=== PATIENT | male | born 1950 | race Caucasian/White ===

== ENCOUNTER 2019-01-31 16:31 | Inpatient (IN) ==
[2019-01-31] MEDS ORDERED: 0.9 % SODIUM CHLORIDE 1,000 ML IV ONE (17:15)
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
[2019-01-31] MEDS ORDERED: IPRATROPIUM/ALBUTEROL 3 ML AMPUL.NEB NEB ONE (17:23)
--- NOTE | 2019-01-31 18:10 | XRay Report ---
INDICATION: Dyspnea. Probable lung cancer. TECHNIQUE: AP chest x-ray,portable semiupright COMPARISON: Previous chest x-ray dated 01/25/2019. Previous chest CT scan dated 01/25/2019 FINDINGS:There is severe COPD with severe emphysema and diffuse interstitial abnormality. Chest CT scan demonstrated a large right hilar mass. This is not well-visualized on present plain film examination. No acute pulmonary parenchymal infiltrate. No pneumothorax. No significant pleural effusion. IMPRESSION: 1. Severe emphysema 2. No significant interval change since 01/25/2019 Interpreted and Authenticated by: Grant Crooks 01/31/19
[2019-01-31 18:28] LABS: ALT/SGPT 28 U/l (0-40); Albumin 2.9 gm/dL (3.2-5.2); Albumin/Globulin Ratio 0.8 (1.0-2.3); Alkaline Phosphatase 395 U/L (39-117); Blood Urea Nitrogen 16 mg/dl (8-23)
[2019-01-31 19:31] LABS: Mean Cell Volume 89.4 fL (80.0-100.0); Mean Corpuscular HGB Conc 32.5 g/dL (31.0-36.0); Platelet Count 594 K/mcL (140-440); RBC 3.97 M/mcL (4.50-5.90); Red Cell Distribution Width 13.4 % (11.5-14.5)
[2019-01-31 20:06] LABS: Band Neutrophils % 1 % (0-10); Basophils % (Manual) 1 % (0-2); Eosinophils % (Manual) 2 % (0-7); Lymphocytes % 16 % (15-49); Monocytes % (Manual) 6 % (1-12); Platelet Estimate INCREASED (NORMAL); RBC Morphology NORMAL (NORMAL); Segmented Neutrophils % 74 % (38-78)
[2019-01-31] MEDS ORDERED: ONDANSETRON 4 MG/2 ML VIAL IV PRN (20:50)
[2019-01-31] MEDS ORDERED: ALBUTEROL SULFATE 2.5 MG/3 ML NEBULIZER NEB PRN (20:50)
[2019-01-31] MEDS ORDERED: NALOXONE HCL 0.4 MG/ML VIAL IV PRN (20:50)
[2019-01-31] MEDS: LACTATED RINGERS 1,000 ML IV SCH (21:18)
[2019-01-31] MEDS: methylPREDNISolone SOD SUCC 125 MG/2 ML VIAL IV SCH ×2 (21:22→23:06)
[2019-01-31] MEDS: GABAPENTIN 300 MG CAPSULE PO SCH (21:22)
[2019-01-31] MEDS: 0.9 % SODIUM CHLORIDE 10 ML SYRINGE IV SCH (21:23)
[2019-01-31] MEDS: PIPERACILLIN SODIUM/TAZOBACTAM 3.375 GM in DEXTROSE 5% IN WATER 50 ML IV SCH (21:24)
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
[2019-01-31] MEDS: IPRATROPIUM/ALBUTEROL 3 ML AMPUL.NEB NEB SCH (22:48)
[2019-02-01] MEDS: PIPERACILLIN SODIUM/TAZOBACTAM 3.375 GM in DEXTROSE 5% IN WATER 50 ML IV SCH ×5 (01:39→23:05)
[2019-02-01] MEDS: IPRATROPIUM/ALBUTEROL 3 ML AMPUL.NEB NEB SCH ×6 (03:38→23:07)
[2019-02-01] MEDS: methylPREDNISolone SOD SUCC 125 MG/2 ML VIAL IV SCH ×3 (05:23→23:01)
[2019-02-01] MEDS: 0.9 % SODIUM CHLORIDE 10 ML SYRINGE IV SCH ×3 (05:23→23:28)
--- NOTE | 2019-02-01 05:56 | XRay Report ---
CLINICAL INFORMATION: Hip pain. Large lung mass, probably cancer TECHNIQUE: AP pelvis. Bilateral lateral hips COMPARISON: None. FINDINGS: Pelvis is negative. No lytic lesion. No fracture. No focal abnormality. Hips are negative. No hip fracture. Joint spaces are normal. No evidence for avascular necrosis. No acute abnormality. There is an elliptical shaped lucency in the right femoral diaphysis. This is nonspecific. This patient with a history of a large lung mass a small metastasis cannot be excluded. IMPRESSION: 1. No acute abnormality. 2. Small lucency in the right femoral diaphysis is nonspecific Interpreted and Authenticated by: Grant Crooks 02/01/19
[2019-02-01] MEDS: OMEPRAZOLE 20 MG CAPSULE PO SCH (07:15)
[2019-02-01] MEDS: ENOXAPARIN 40 MG/0.4 ML SYRINGE SQ SCH (09:34)
[2019-02-01] MEDS: GABAPENTIN 300 MG CAPSULE PO SCH ×3 (09:34→20:28)
--- NOTE | 2019-02-01 10:31 | Internal Med Progress Note ---
Medical - PN: Subj Patient information: Note initiated : 02/01/19 at 10:27 am Service Date, if different from initiated Date: [] Patient: Dawson Abdi 68 y/o M admitted on 01/31/19 for Shortness of breath. Chief Complaint: [] Interval history: Mr. Abdi is a 68 year old M with history of severe emphysema, presents to the emergency room today from the pulmonary clinic for evaluation of shortness of breath. The patient has had 3 visits to the emergency room over the last 1 month. He was diagnosed with a lung mass, and was advised to have a CT-guided biopsy. It seems that CT-guided biopsy was not feasible and therefore the patient was referred to pulmonary for bronchoscopy guided biopsy. The patient was evaluated in the pulmonary clinic today, the patient was very short of breath tachycardic and a low-grade temperature and therefore sent to the emergency room. According to the pulmonary note the patient was also confused and hallucinating. He was recently started on fentanyl. Patient's PFT was done recently which shows patient has severe obstructive lung disease. The patient notes that he has been short of breath for the last month or so, he has chest pain left side when he coughs, he has progressive decline in his effort tolerance, even walking a few feet makes him very short of breath. He has recently been started on oxygen I believe he takes 2 L at base. He has cough but did not quantify his sputum production. On presentation to the emergency room patient was hemodynamically stable and afebrile, he was placed on 3 L of oxygen to keep his oxygen saturation more than 90%. Labs show a leukocytosis WBC 18.6, hemoglobin 11.5 platelets 12/04/1993. Chemistry was unremarkable glucose 168, albumin is 2.8 and alkaline phosphatase is 395, patient has elevated pro-calcitonin 1.02. ABG 7.47/41/89 Patient is being admitted to the hospital for further management as the patient cannot undergo a bronchoscopy as an outpatient. Patient also has pneumonia likely postobstructive 02/01 pt seen examined, no acute change since yesterday, still sob with minimal activity on antibiotics, plan of care reviewed with pulmonary, will appreciate their help in getting a biopsy once patient is optimized. Pertinent ROS: Denies headache, dizziness Denies chest pain, palpitations shortness of breath and cough present. Denies abdominal pain, nausea or vomiting. - Constitutional Vitals: Vital Signs Temp Pulse Resp BP Pulse Ox 97.8 F 70 18 109/64 97 02/01/19 06:29 02/01/19 07:40 02/01/19 07:40 02/01/19 06:29 02/01/19 07:40 Period Temp Pulse Resp BP Sys/Dudley Pulse Ox Last 24 Hr 97.3 F-98.9 F 40-114 14-28 83-126/48-85 79-100 Intake and Output 01/31/19 02/01/19 02/01/19 21:59 05:59 13:59 Intake Total 1050 100 Output Total 1650 Balance 1050 -1550 Weight 112 lb Intake & Output: Intake & Output 01/31/19 02/01/19 02/01/19 21:59 05:59 13:59 Intake Total 1050 100 Output Total 1650 Balance 1050 -1550 Weight 112 lb Intake: IV 1050 50 Sodium Chloride 0.9% 1,000 ml @ 1000 Wide Open IV BOLUS ONE Rx#: [id number] Zosyn 3.375 gm In Dextrose 5% 50 50 in Water 50 ml @ 100 mls/hr IV Q6H NAOMI Rx#:[id number] Oral 50 Output: Void Amount 1650 Other: Urine Appearance Clear Urine Color Dark Yellow Dark Yellow Urine Odor Normal Exam: Constitutional; Afebrile, cooperative, alert, not in distress. Respiratory system: Air Entry equal on both sides, significntly decreased air entry bilaterally. No audible wheeze. CVS- Rate rhythm regular, S1,S2 heard, no gallop, no rub. Abdomen- Soft nontender abdomen, no organomegaly, no tenderness, no guarding or rigidity, [employer]- AOOx3, moving all extremities, no gross focal deficit noted. Medical - PN: Obj Da - Labs CBC & Chem 7: 01/31/19 18:52 01/31/19 17:13 Labs: Abnormal Lab Results 01/31/19 01/31/19 18:52 17:13 WBC 18.6 H RBC 3.97 L Hgb 11.5 L Hct 35.5 L Plt Count 594 H MPV 7.2 L Platelet Estimate Increased A Chloride 93 L Glucose 168 H Alkaline Phosphatase 395 H Albumin 2.9 L Globulin 3.8 H Albumin/Globulin Ratio 0.8 L Meds: Medications Acetaminophen (Tylenol) 650 mg PO Q6HP PRN PRN Reason: PAIN/FEVER > 101 Albuterol Sulfate (Ventolin) 2.5 mg NEB Q2HP PRN PRN Reason: Shortness Of Breath Albuterol/Ipratropium (Duoneb) 3 ml NEB Q4HRT [facility] Last Admin: 02/01/19 07:38 Dose: 3 ml Documented by: Enoxaparin Sodium (Lovenox) 40 mg SQ DAILY [facility] Last Admin: 02/01/19 09:34 Dose: 40 mg Documented by: Gabapentin (Neurontin) 300 mg PO TID [facility] Last Admin: 02/01/19 09:34 Dose: 300 mg Documented by: Hydromorphone HCl (Dilaudid) 0.5 mg IV Q2HP PRN PRN Reason: PAIN LEVEL > 6 Piperacillin Sod/Tazobactam (Sod 3.375 gm/ Dextrose) 50 mls @ 100 mls/hr IV Q6H [facility]; Protocol Last Admin: 02/01/19 05:24 Dose: 100 mls/hr Documented by: Lactated Ringer's (Lactated Ringers) 1,000 mls @ 84 mls/hr IV .[id number] [facility] Stop: 02/01/19 20:38 Last Admin: 01/31/19 21:18 Dose: 84 mls/hr Documented by: Methylprednisolone Sodium Succinate (Solu-Medrol) 62.5 mg IV Q8 [facility] Last Admin: 02/01/19 05:23 Dose: 62.5 mg Documented by: Naloxone HCl (Narcan) 0.1 mg IV Q2MIN PRN PRN Reason: Opiate Reversal Omeprazole (Prilosec) 20 mg PO QAMAC [facility] Last Admin: 02/01/19 07:15 Dose: 20 mg Documented by: Ondansetron HCl (Zofran) 4 mg IV Q6HP PRN PRN Reason: Nausea And Vomiting Oxycodone HCl (Roxicodone) 5 mg PO Q4HP PRN PRN Reason: PAIN LEVEL 3-6 Sodium Chloride (Saline Flush) 10 ml IV Q8 [facility] Last Admin: 02/01/19 05:23 Dose: 10 ml Documented by: Medical - PN: A/P - Time Spent With Patient Total time spent is greater than 50% in coordination of care (as documented) at patient's floor/unit and/or counseling patient: - Narrative A/P Narrative: A/P Acute exacerbation of COPD/ Severe Emphysema -Steroids, Duonebs and antibiotics Acute on Chr Resp failure -on oxygen supplementation to keep osat > 90 Pneumonia, Post obstructive -on Zosyn for now, await culture results, mrsa screen is negative. Lung tumor/ LIkely malignant -needs bronchoscopic biopsy, will appreciate pulmonary help in this regard, -hopefully will be able to do once pt is stablized. Hip Pain -neg for any acute fracture -mild translucency? -avoid fentanyl, likely causing confusion Malnutrition, BMI 17.7 -Dietary consult, regular diet. Tobacco abuse -recently quit Hypertension -resume home meds once stable DVT enoxaparin Full code. Medical - PN: Qual - Stroke Symptom Onset Unknown: No - VTE Deep Vein Thrombosis/Pulmonary Embolism Present on Admission: No
[2019-02-01] MEDS: LACTATED RINGERS 1,000 ML IV SCH (11:04)
[2019-02-01 11:14] LABS: Basophils # (Auto) 0 K/mcL (0.0-0.3); Basophils % (Auto) 0 % (0.0-2.0); Eosinophils # (Auto) 0 K/mcL (0.0-0.7); Eosinophils % (Auto) 0 % (0.0-7.0); Granulocytes % (Auto) 94.6 % (38.0-78.0); Lymphocytes # (Auto) 0.3 K/mcL (1.5-4.8); Lymphocytes % (Auto) 3.5 % (15.5-49.0); Mean Cell Volume 89.8 fL (80.0-100.0); Mean Corpuscular HGB Conc 32.6 g/dL (31.0-36.0); Monocytes # (Auto) 0.2 K/mcL (0.1-0.9); Monocytes % (Auto) 1.9 % (1.0-12.0); Platelet Count 555 K/mcL (140-440); RBC 3.81 M/mcL (4.50-5.90); Red Cell Distribution Width 13.5 % (11.5-14.5)
[2019-02-01 11:39] LABS: ALT/SGPT 25 U/l (0-40); Albumin 2.7 gm/dL (3.2-5.2); Albumin/Globulin Ratio 0.7 (1.0-2.3); Alkaline Phosphatase 311 U/L (39-117); Bilirubin,Direct < 0.2 mg/dL (0.0-0.3); Blood Urea Nitrogen 12 mg/dl (8-23); Gamma Glutamyl Transpeptidase 165 U/L (8-61); Uric Acid 2.3 mg/dL (2.5-8.0)
--- NOTE | 2019-02-01 12:57 | Internal Med Progress Note ---
Medical - PN: Subj Patient information: Note initiated : 02/01/19 at 12:51 pm Service Date, if different from initiated Date: [] Patient: Dawson Abdi 68 y/o M admitted on 01/31/19 for Shortness of breath. Chief Complaint: [] Interval history: Mr. Abdi is a 68 year old M with history of severe emphysema, presents to the emergency room today from the pulmonary clinic for evaluation of shortness of breath. The patient has had 3 visits to the emergency room over the last 1 month. He was diagnosed with a lung mass, and was advised to have a CT-guided biopsy. It seems that CT-guided biopsy was not feasible and therefore the patient was referred to pulmonary for bronchoscopy guided biopsy. The patient was evaluated in the pulmonary clinic today, the patient was very short of breath tachycardic and a low-grade temperature and therefore sent to the emergency room. According to the pulmonary note the patient was also confused and hallucinating. He was recently started on fentanyl. Patient's PFT was done recently which shows patient has severe obstructive lung disease. The patient notes that he has been short of breath for the last month or so, he has chest pain left side when he coughs, he has progressive decline in his effort tolerance, even walking a few feet makes him very short of breath. He has recently been started on oxygen I believe he takes 2 L at base. He has cough but did not quantify his sputum production. On presentation to the emergency room patient was hemodynamically stable and afebrile, he was placed on 3 L of oxygen to keep his oxygen saturation more than 90%. Labs show a leukocytosis WBC 18.6, hemoglobin 11.5 platelets 12/04/1993. Chemistry was unremarkable glucose 168, albumin is 2.8 and alkaline phosphatase is 395, patient has elevated pro-calcitonin 1.02. ABG 7.47/41/89 Patient is being admitted to the hospital for further management as the patient cannot undergo a bronchoscopy as an outpatient. Patient also has pneumonia likely postobstructive 02/01 pt seen examined, no acute change since yesterday, still sob with minimal activity on antibiotics, plan of care reviewed with pulmonary, will appreciate their help in getting a biopsy once patient is optimized. 02/02 - Constitutional Vitals: Vital Signs Temp Pulse Resp BP Pulse Ox 97.8 F 70 18 109/64 97 02/01/19 06:29 02/01/19 11:35 02/01/19 11:35 02/01/19 06:29 02/01/19 07:40 Period Temp Pulse Resp BP Sys/Dudley Pulse Ox Last 24 Hr 97.3 F-98.9 F 40-114 14-28 83-126/48-85 79-100 Intake and Output 01/31/19 02/01/19 02/01/19 21:59 05:59 13:59 Intake Total 4884 753 3872 Output Total 1650 Balance 1050 -1550 1050 Weight 50.802 kg 50.802 kg Patient Weight 02/02/19 05:59 Weight 50.802 kg Intake & Output: Intake & Output 01/31/19 02/01/19 02/01/19 21:59 05:59 13:59 Intake Total 5564 089 9968 Output Total 1650 Balance 1050 -1550 1050 Weight 50.802 kg 50.802 kg Intake: IV 1050 50 1050 Sodium Chloride 0.9% 1,000 ml @ 1000 Wide Open IV BOLUS ONE Rx#: [id number] Lactated Ringers 1,000 ml @ 84 1000 mls/hr IV .[id number] [facility] Rx#: [id number] Zosyn 3.375 gm In Dextrose 5% 50 50 50 in Water 50 ml @ 100 mls/hr IV Q6H [facility] Rx#:[id number] Oral 50 Output: Void Amount 1650 Other: Urine Appearance Clear Urine Color Dark Yellow Dark Yellow Urine Odor Normal Exam: General: Alert, Awake, No acute Distress Eyes/N/T: EOMI, Head/Neck: neck supple, CV: RRR, No murmurs, Pulm: Decreased bilaterally, no wheezing. Abd: soft, nontender, +BS x4 Ext: no clubbing/cyanosis/edema Neuro: Alert, no focal deficits, moves all extremities, Skin: warm/dry Medical - PN: Obj Da - Labs CBC & Chem 7: 02/01/19 10:35 02/01/19 10:35 Labs: Abnormal Lab Results 02/01/19 02/01/19 01/31/19 10:35 10:35 18:52 WBC 18.6 H RBC 3.81 L 3.97 L Hgb 11.2 L 11.5 L Hct 34.2 L 35.5 L Plt Count 555 H 594 H MPV 7.3 L 7.2 L Gran % 94.6 H Lymph % (Auto) 3.5 L Gran # 9.0 H Lymph # (Auto) 0.3 L Platelet Estimate Increased A Chloride Creatinine 0.6 L Glucose 182 H Uric Acid 2.3 L GGT 165 H Alkaline Phosphatase 311 H Albumin 2.7 L Globulin 4.0 H Albumin/Globulin Ratio 0.7 L 01/31/19 17:13 WBC RBC Hgb Hct Plt Count MPV Gran % Lymph % (Auto) Gran # Lymph # (Auto) Platelet Estimate Chloride 93 L Creatinine Glucose 168 H Uric Acid GGT Alkaline Phosphatase 395 H Albumin 2.9 L Globulin 3.8 H Albumin/Globulin Ratio 0.8 L Meds: Medications Acetaminophen (Tylenol) 650 mg PO Q6HP PRN PRN Reason: PAIN/FEVER > 101 Albuterol Sulfate (Ventolin) 2.5 mg NEB Q2HP PRN PRN Reason: Shortness Of Breath Albuterol/Ipratropium (Duoneb) 3 ml NEB Q4HRT [facility] Last Admin: 02/01/19 11:31 Dose: 3 ml Documented by: Enoxaparin Sodium (Lovenox) 40 mg SQ DAILY [facility] Last Admin: 02/01/19 09:34 Dose: 40 mg Documented by: Gabapentin (Neurontin) 300 mg PO TID [facility] Last Admin: 02/01/19 09:34 Dose: 300 mg Documented by: Hydromorphone HCl (Dilaudid) 0.5 mg IV Q2HP PRN PRN Reason: PAIN LEVEL > 6 Piperacillin Sod/Tazobactam (Sod 3.375 gm/ Dextrose) 50 mls @ 100 mls/hr IV Q6H [facility]; Protocol Last Admin: 02/01/19 12:14 Dose: 100 mls/hr Documented by: Lactated Ringer's (Lactated Ringers) 1,000 mls @ 84 mls/hr IV .[id number] [facility] Stop: 02/01/19 20:38 Last Admin: 02/01/19 11:04 Dose: 84 mls/hr Documented by: Methylprednisolone Sodium Succinate (Solu-Medrol) 62.5 mg IV Q8 [facility] Last Admin: 02/01/19 05:23 Dose: 62.5 mg Documented by: Naloxone HCl (Narcan) 0.1 mg IV Q2MIN PRN PRN Reason: Opiate Reversal Omeprazole (Prilosec) 20 mg PO QAMAC [facility] Last Admin: 02/01/19 07:15 Dose: 20 mg Documented by: Ondansetron HCl (Zofran) 4 mg IV Q6HP PRN PRN Reason: Nausea And Vomiting Oxycodone HCl (Roxicodone) 5 mg PO Q4HP PRN PRN Reason: PAIN LEVEL 3-6 Sodium Chloride (Saline Flush) 10 ml IV Q8 [facility] Last Admin: 02/01/19 05:23 Dose: 10 ml Documented by: Medical - PN: A/P - Time Spent With Patient Total time spent is greater than 50% in coordination of care (as documented) at patient's floor/unit and/or counseling patient: - Narrative A/P Narrative: A: *AECOPD, severe underlying emphysema: *Acute on chronic hypoxic respiratory failure: *Pneumonia, postobstructive: MRSA screen negative *Lung mass RLL, likely malignant: -needs bronchoscopic biopsy, will appreciate pulmonary help in this regard, -hopefully will be able to do once pt is stablized. *Hip pain: -neg for any acute fracture, mild translucency? -avoid fentanyl, likely causing confusion *Malnutrition: *Tobacco abuse: *HTN: On Toprol at home *GERD: P: -Steroids (wean), Nebs/RT -PRN supplemental O2 -Abx, pending SC/BC -Dr. Loredo for consult and possible bronchoscopy - - -Dietary consult -Smoking cessation counseling - -ppx: Lovenox Medical - PN: Qual - Stroke Symptom Onset Unknown: No - VTE Deep Vein Thrombosis/Pulmonary Embolism Present on Admission: No
--- NOTE | 2019-02-01 19:51 | Consultation ---
DATE OF CONSULTATION: 02/01/2019 REQUESTING PHYSICIAN: Dr. Foy. HISTORY OF PRESENT ILLNESS: The patient is a 68-year-old gentleman, who originally presented to my pulmonary clinic on 01/31/2019 where he was scheduled for an outpatient visit. He was evaluated by nursing staff and found to be hallucinating, hypoxic, and hypotensive. He was transported to the emergency room where he was generally improved in that regard, but considered a candidate for admission after 3 emergency room visits in 1 month. Unfortunately, the patient has severe emphysematous chronic obstructive pulmonary disease. He was recently identified to have a right hilar and right upper lobe mass lesion which apparently has been growing. A consultation and evaluation in the pulmonary clinic was to be preparatory for bronchoscopy and trying to determine the cause of his radiographic change. It is suspicious for a form of lung cancer. The patient reports that he has smoked for 50 years. He has not smoked anything in the last month. He is congratulated in that regard. He denies unusual pets, plants, or birds in the home. He has done some carpet-type work and had some other work-related mild exposures. He denies known exposure to tuberculosis or previous PPD skin testing. He denies unusual travel. On presentation to the emergency room, his white count was elevated at 18.6. A chest x-ray suggested a right lung infiltrate. He was admitted and initiated on therapy with antibiotics. Today, the patient indicates that he feels some better. He is working on his incentive spirometer. REVIEW OF SYSTEMS: Negative on questioning in a detailed fashion for additional recent problems in his healthcare and difficulties. PHYSICAL EXAMINATION: GENERAL: The patient is a pleasant, cachectic male in mild chronic-appearing respiratory distress at this time. HEENT: Head is atraumatic and normocephalic. Eyes, PERRLA, EOMI. Sclerae and conjunctiva clear. NECK: Supple. Carotids are without apparent bruits. LUNGS: Markedly decreased breath sounds in all lung duarte with hyperresonance on percussion. Rare rhonchus in the right lung. HEART: Regular S1, S2. There is no gallop, rub, jugular venous distention, or dependent edema. The PMI is subxiphoid. ABDOMEN: Soft. Bowel sounds are present. Liver and spleen are not palpable. BONES, JOINTS, AND EXTREMITIES: Without acute changes. NEUROLOGIC: Nonfocal. LABORATORY DATA: At time of presentation, white count of 18.6; hemoglobin 11.5; hematocrit 35.5; and platelet count 594,000. White count is improved to 9.6 today, hemoglobin to 11.2. Some volume expansion. Albumin is low, globulin is high. Procalcitonin 1.02, elevated, consistent with his probable pneumonitis. ASSESSMENT: A 68-year-old gentleman with profound emphysematous response to the inhalation of products of combustion from tobacco smoke. He has a new lung mass. Hopefully, we can get him tuned up enough to allow a bronchoscopy to occur and come to a conclusion about the abnormality on CT scan of the chest and allow further plan and management. Please let me know how his clinical condition progresses, and we might look for a window of opportunity to consider bronchoscopy in his care in the next 1 to 2 weeks. Thank you for the opportunity to participate in the care of this seriously ill gentleman. NATASHAP:melissa Job ID: [id number] Doc ID: [id number] Chris Loredo MD
[2019-02-01] MEDS: oxyCODONE HCL 5 MG TABLET PO PRN (20:28)
[2019-02-01] MEDS: HYDROmorphone 2 MG/ML VIAL IV PRN (20:30)
[2019-02-01] MEDS ORDERED: FAMOTIDINE 20 MG TABLET PO SCH (21:00)
[2019-02-02] MEDS: HYDROmorphone 2 MG/ML VIAL IV PRN ×4 (04:21→18:09)
[2019-02-02] MEDS: oxyCODONE HCL 5 MG TABLET PO PRN ×4 (04:22→18:06)
[2019-02-02] MEDS: IPRATROPIUM/ALBUTEROL 3 ML AMPUL.NEB NEB SCH ×4 (04:23→19:03)
[2019-02-02] MEDS: PIPERACILLIN SODIUM/TAZOBACTAM 3.375 GM in DEXTROSE 5% IN WATER 50 ML IV SCH ×4 (04:39→23:27)
[2019-02-02] MEDS: 0.9 % SODIUM CHLORIDE 10 ML SYRINGE IV SCH ×3 (04:41→21:12)
[2019-02-02] MEDS: methylPREDNISolone SOD SUCC 125 MG/2 ML VIAL IV SCH ×3 (05:23→21:12)
[2019-02-02 07:07] LABS: ALT/SGPT 27 U/l (0-40); Albumin 2.6 gm/dL (3.2-5.2); Albumin/Globulin Ratio 0.6 (1.0-2.3); Alkaline Phosphatase 287 U/L (39-117); Bilirubin,Direct < 0.2 mg/dL (0.0-0.3); Blood Urea Nitrogen 16 mg/dl (8-23); Gamma Glutamyl Transpeptidase 144 U/L (8-61)
[2019-02-02] MEDS: OMEPRAZOLE 20 MG CAPSULE PO SCH (07:32)
--- NOTE | 2019-02-02 07:51 | Internal Med Progress Note ---
Medical - PN: Subj Patient information: Note initiated : 02/02/19 at 7:44 am Service Date, if different from initiated Date: [] Patient: Dawson Abdi 68 y/o M admitted on 01/31/19 for Shortness of breath. Chief Complaint: [] Interval history: Mr. Abdi is a 68 year old M with history of severe emphysema, presents to the emergency room today from the pulmonary clinic for evaluation of shortness of breath. The patient has had 3 visits to the emergency room over the last 1 month. He was diagnosed with a lung mass, and was advised to have a CT-guided biopsy. It seems that CT-guided biopsy was not feasible and therefore the patient was referred to pulmonary for bronchoscopy guided biopsy. The patient was evaluated in the pulmonary clinic today, the patient was very short of breath tachycardic and a low-grade temperature and therefore sent to the emergency room. According to the pulmonary note the patient was also confused and hallucinating. He was recently started on fentanyl. Patient's PFT was done recently which shows patient has severe obstructive lung disease. The patient notes that he has been short of breath for the last month or so, he has chest pain left side when he coughs, he has progressive decline in his effort tolerance, even walking a few feet makes him very short of breath. He has recently been started on oxygen I believe he takes 2 L at base. He has cough but did not quantify his sputum production. On presentation to the emergency room patient was hemodynamically stable and afebrile, he was placed on 3 L of oxygen to keep his oxygen saturation more than 90%. Labs show a leukocytosis WBC 18.6, hemoglobin 11.5 platelets 12/04/1993. Chemistry was unremarkable glucose 168, albumin is 2.8 and alkaline phosphatase is 395, patient has elevated pro-calcitonin 1.02. ABG 7.47/41/89 Patient is being admitted to the hospital for further management as the patient cannot undergo a bronchoscopy as an outpatient. Patient also has pneumonia likely postobstructive 02/01 pt seen examined, no acute change since yesterday, still sob with minimal activity on antibiotics, plan of care reviewed with pulmonary, will appreciate their help in getting a biopsy once patient is optimized. 02/02 - Constitutional Vitals: Vital Signs Temp Pulse Resp BP Pulse Ox 97.7 F 59 L 20 144/67 96 02/02/19 04:00 02/02/19 04:00 02/02/19 04:00 02/02/19 04:00 02/02/19 04:00 Period Temp Pulse Resp BP Sys/Dudley Pulse Ox Last 24 Hr 97.7 F-98.4 F 59-112 18-20 121-144/62-72 93-97 Intake and Output 02/01/19 02/02/19 02/02/19 21:59 05:59 13:59 Intake Total 480 100 Output Total 750 Balance 480 -650 Weight 50.349 kg Intake & Output: Intake & Output 02/01/19 02/02/19 02/02/19 21:59 05:59 13:59 Intake Total 480 100 Output Total 750 Balance 480 -650 Weight 50.349 kg Intake: IV 100 Zosyn 3.375 gm In Dextrose 5% 100 in Water 50 ml @ 100 mls/hr IV Q6H [facility] Rx#:[id number] Oral 480 Output: Void Amount 750 Other: Meal Nourishment/Supplement Percent of Meal Consumed 100% Urine Appearance Clear Urine Color Dark Yellow Urine Odor Normal # Voids 1 Exam: General: Alert, Awake, No acute Distress Eyes/N/T: EOMI, Head/Neck: neck supple, CV: RRR, No murmurs, Pulm: Decreased bilaterally, no wheezing. Abd: soft, nontender, +BS x4 Ext: no clubbing/cyanosis/edema Neuro: Alert, no focal deficits, moves all extremities, Skin: warm/dry Medical - PN: Obj Da - Labs CBC & Chem 7: 02/02/19 04:22 02/02/19 04:22 Labs: Abnormal Lab Results 02/02/19 02/01/19 02/01/19 04:22 10:35 10:35 WBC RBC 3.81 L Hgb 11.2 L Hct 34.2 L Plt Count 555 H MPV 7.3 L Gran % 94.6 H Lymph % (Auto) 3.5 L Gran # 9.0 H Lymph # (Auto) 0.3 L Platelet Estimate Chloride Creatinine 0.6 L 0.6 L Glucose 161 H 182 H Uric Acid 2.0 L 2.3 L GGT 144 H 165 H Alkaline Phosphatase 287 H 311 H Albumin 2.6 L 2.7 L Globulin 4.1 H 4.0 H Albumin/Globulin Ratio 0.6 L 0.7 L 01/31/19 01/31/19 18:52 17:13 WBC 18.6 H RBC 3.97 L Hgb 11.5 L Hct 35.5 L Plt Count 594 H MPV 7.2 L Gran % Lymph % (Auto) Gran # Lymph # (Auto) Platelet Estimate Increased A Chloride 93 L Creatinine Glucose 168 H Uric Acid GGT Alkaline Phosphatase 395 H Albumin 2.9 L Globulin 3.8 H Albumin/Globulin Ratio 0.8 L Meds: Medications Acetaminophen (Tylenol) 650 mg PO Q6HP PRN PRN Reason: PAIN/FEVER > 101 Albuterol Sulfate (Ventolin) 2.5 mg NEB Q2HP PRN PRN Reason: Shortness Of Breath Albuterol/Ipratropium (Duoneb) 3 ml NEB Q4HRT [facility] Last Admin: 02/02/19 04:23 Dose: 3 ml Documented by: Enoxaparin Sodium (Lovenox) 40 mg SQ DAILY [facility] Last Admin: 02/01/19 09:34 Dose: 40 mg Documented by: Famotidine (Pepcid) 20 mg PO BID [facility] Last Admin: 02/01/19 20:28 Dose: 20 mg Documented by: Gabapentin (Neurontin) 300 mg PO TID [facility] Last Admin: 02/01/19 20:28 Dose: 300 mg Documented by: Hydromorphone HCl (Dilaudid) 0.5 mg IV Q2HP PRN PRN Reason: PAIN LEVEL > 6 Last Admin: 02/02/19 04:21 Dose: 0.5 mg Documented by: Piperacillin Sod/Tazobactam (Sod 3.375 gm/ Dextrose) 50 mls @ 100 mls/hr IV Q6H [facility]; Protocol Last Admin: 02/02/19 04:39 Dose: 100 mls/hr Documented by: Methylprednisolone Sodium Succinate (Solu-Medrol) 62.5 mg IV Q8 [facility] Last Admin: 02/02/19 05:23 Dose: 62.5 mg Documented by: Naloxone HCl (Narcan) 0.1 mg IV Q2MIN PRN PRN Reason: Opiate Reversal Omeprazole (Prilosec) 20 mg PO QAMAC [facility] Last Admin: 02/02/19 07:32 Dose: 20 mg Documented by: Ondansetron HCl (Zofran) 4 mg IV Q6HP PRN PRN Reason: Nausea And Vomiting Oxycodone HCl (Roxicodone) 5 mg PO Q4HP PRN PRN Reason: PAIN LEVEL 3-6 Last Admin: 02/02/19 04:22 Dose: 5 mg Documented by: Sodium Chloride (Saline Flush) 10 ml IV Q8 [facility] Last Admin: 02/02/19 04:41 Dose: 10 ml Documented by: Medical - PN: A/P - Time Spent With Patient Total time spent is greater than 50% in coordination of care (as documented) at patient's floor/unit and/or counseling patient: - Narrative A/P Narrative: A: *AECOPD, severe underlying emphysema: *Acute on chronic hypoxic respiratory failure: -4L Oxymask *Pneumonia, postobstructive: MRSA screen negative *Lung mass RLL, likely malignant: unable to get CT-guided lung bx by [facility] given safety concerns -needs bronchoscopic biopsy, will appreciate pulmonary help in this regard, -hopefully will be able to do once pt is stablized. *Hip pain: -neg for any acute fracture, mild translucency? -avoid fentanyl, likely causing confusion *Malnutrition: *Tobacco abuse: *HTN: On Toprol at home *GERD: *chronic pain: on fentanyl and oxycodone at home P: -Steroids (wean), Nebs/RT -PRN supplemental O2 wean as able -vinnie, pending SC/BC -Dr. Loredo for consult and possible bronchoscopy - -Dietary consult -Smoking cessation counseling -pt/ot -ppx: Lovenox/home ppi Medical - PN: Qual - Stroke Symptom Onset Unknown: No - VTE Deep Vein Thrombosis/Pulmonary Embolism Present on Admission: No
--- NOTE | 2019-02-02 08:07 | Internal Med Progress Note ---
Medical - PN: Subj Patient information: Note initiated : 02/02/19 at 8:06 am Service Date, if different from initiated Date: [] Patient: Dawson Abdi 68 y/o M admitted on 01/31/19 for Shortness of breath. Chief Complaint: [] Interval history: Mr. Abdi is a 68 year old M with history of severe emphysema, presents to the emergency room today from the pulmonary clinic for evaluation of shortness of breath. The patient has had 3 visits to the emergency room over the last 1 month. He was diagnosed with a lung mass, and was advised to have a CT-guided biopsy. It seems that CT-guided biopsy was not feasible and therefore the patient was referred to pulmonary for bronchoscopy guided biopsy. The patient was evaluated in the pulmonary clinic today, the patient was very short of breath tachycardic and a low-grade temperature and therefore sent to the emergency room. According to the pulmonary note the patient was also confused and hallucinating. He was recently started on fentanyl. Patient's PFT was done recently which shows patient has severe obstructive lung disease. The patient notes that he has been short of breath for the last month or so, he has chest pain left side when he coughs, he has progressive decline in his effort tolerance, even walking a few feet makes him very short of breath. He has recently been started on oxygen I believe he takes 2 L at base. He has cough but did not quantify his sputum production. On presentation to the emergency room patient was hemodynamically stable and afebrile, he was placed on 3 L of oxygen to keep his oxygen saturation more than 90%. Labs show a leukocytosis WBC 18.6, hemoglobin 11.5 platelets 12/04/1993. Chemistry was unremarkable glucose 168, albumin is 2.8 and alkaline phosphatase is 395, patient has elevated pro-calcitonin 1.02. ABG 7.47/41/89 Patient is being admitted to the hospital for further management as the patient cannot undergo a bronchoscopy as an outpatient. Patient also has pneumonia likely postobstructive 02/01 pt seen examined, no acute change since yesterday, still sob with minimal activity on antibiotics, plan of care reviewed with pulmonary, will appreciate their help in getting a biopsy once patient is optimized. 02/02 Slept okay until about 4AM. Has mild productive cough. Shortness of breath improving. Seen by pulmonology yesterday plan for bronchoscopy with biopsy within the next 1-2 weeks as patient recovers from acute illness. Has this chronic pain right hip around to the back. No other events, no other acute complaints. Review of Systems: denies headache/fever/chills/nausea/vomiting/abdominal pain/diarrhea. Otherwise see above. - Constitutional Vitals: Vital Signs Temp Pulse Resp BP Pulse Ox 97.7 F 59 L 20 144/67 96 02/02/19 04:00 02/02/19 04:00 02/02/19 04:00 02/02/19 04:00 02/02/19 04:00 Period Temp Pulse Resp BP Sys/Dudley Pulse Ox Last 24 Hr 97.7 F-98.4 F 59-112 18-20 121-144/62-72 93-97 Intake and Output 02/01/19 02/02/19 02/02/19 21:59 05:59 13:59 Intake Total 480 100 Output Total 750 Balance 480 -650 Weight 50.349 kg Intake & Output: Intake & Output 02/01/19 02/02/19 02/02/19 21:59 05:59 13:59 Intake Total 480 100 Output Total 750 Balance 480 -650 Weight 50.349 kg Intake: IV 100 Zosyn 3.375 gm In Dextrose 5% 100 in Water 50 ml @ 100 mls/hr IV Q6H [facility] Rx#:[id number] Oral 480 Output: Void Amount 750 Other: Meal Nourishment/Supplement Percent of Meal Consumed 100% Urine Appearance Clear Urine Color Dark Yellow Urine Odor Normal # Voids 1 Exam: General: Alert, Awake, No acute Distress Eyes/N/T: EOMI, Head/Neck: neck supple, CV: RRR, No murmurs, Pulm: Decreased bilaterally, no wheezing. Abd: soft, nontender, +BS x4 Ext: no clubbing/cyanosis/edema Neuro: Alert, no focal deficits, moves all extremities, Skin: warm/dry Medical - PN: Obj Da - Labs CBC & Chem 7: 02/02/19 04:22 02/02/19 04:22 Labs: Abnormal Lab Results 02/02/19 02/01/19 02/01/19 04:22 10:35 10:35 WBC RBC 3.81 L Hgb 11.2 L Hct 34.2 L Plt Count 555 H MPV 7.3 L Gran % 94.6 H Lymph % (Auto) 3.5 L Gran # 9.0 H Lymph # (Auto) 0.3 L Platelet Estimate Chloride Creatinine 0.6 L 0.6 L Glucose 161 H 182 H Uric Acid 2.0 L 2.3 L GGT 144 H 165 H Alkaline Phosphatase 287 H 311 H Albumin 2.6 L 2.7 L Globulin 4.1 H 4.0 H Albumin/Globulin Ratio 0.6 L 0.7 L 01/31/19 01/31/19 18:52 17:13 WBC 18.6 H RBC 3.97 L Hgb 11.5 L Hct 35.5 L Plt Count 594 H MPV 7.2 L Gran % Lymph % (Auto) Gran # Lymph # (Auto) Platelet Estimate Increased A Chloride 93 L Creatinine Glucose 168 H Uric Acid GGT Alkaline Phosphatase 395 H Albumin 2.9 L Globulin 3.8 H Albumin/Globulin Ratio 0.8 L Meds: Medications Acetaminophen (Tylenol) 650 mg PO Q6HP PRN PRN Reason: PAIN/FEVER > 101 Albuterol Sulfate (Ventolin) 2.5 mg NEB Q2HP PRN PRN Reason: Shortness Of Breath Albuterol/Ipratropium (Duoneb) 3 ml NEB Q4HRT [facility] Last Admin: 02/02/19 04:23 Dose: 3 ml Documented by: Enoxaparin Sodium (Lovenox) 40 mg SQ DAILY [facility] Last Admin: 02/01/19 09:34 Dose: 40 mg Documented by: Famotidine (Pepcid) 20 mg PO BID [facility] Last Admin: 02/01/19 20:28 Dose: 20 mg Documented by: Gabapentin (Neurontin) 300 mg PO TID [facility] Last Admin: 02/01/19 20:28 Dose: 300 mg Documented by: Hydromorphone HCl (Dilaudid) 0.5 mg IV Q2HP PRN PRN Reason: PAIN LEVEL > 6 Last Admin: 02/02/19 04:21 Dose: 0.5 mg Documented by: Piperacillin Sod/Tazobactam (Sod 3.375 gm/ Dextrose) 50 mls @ 100 mls/hr IV Q6H [facility]; Protocol Last Admin: 02/02/19 04:39 Dose: 100 mls/hr Documented by: Methylprednisolone Sodium Succinate (Solu-Medrol) 62.5 mg IV Q8 [facility] Last Admin: 02/02/19 05:23 Dose: 62.5 mg Documented by: Naloxone HCl (Narcan) 0.1 mg IV Q2MIN PRN PRN Reason: Opiate Reversal Omeprazole (Prilosec) 20 mg PO QAMAC [facility] Last Admin: 02/02/19 07:32 Dose: 20 mg Documented by: Ondansetron HCl (Zofran) 4 mg IV Q6HP PRN PRN Reason: Nausea And Vomiting Oxycodone HCl (Roxicodone) 5 mg PO Q4HP PRN PRN Reason: PAIN LEVEL 3-6 Last Admin: 02/02/19 04:22 Dose: 5 mg Documented by: Sodium Chloride (Saline Flush) 10 ml IV Q8 [facility] Last Admin: 02/02/19 04:41 Dose: 10 ml Documented by: Medical - PN: A/P - Time Spent With Patient Total time spent is greater than 50% in coordination of care (as documented) at patient's floor/unit and/or counseling patient: - Narrative A/P Narrative: A: *AECOPD (2L NC @home), severe underlying emphysema: *Acute on chronic hypoxic respiratory failure: -4L Oxymask *Pneumonia, postobstructive: MRSA screen negative *Lung mass RLL, likely malignant: unable to get CT-guided lung bx by [facility] given safety concerns -needs bronchoscopic biopsy, will appreciate pulmonary help in this regard -hopefully will be able to do once pt is stablized. *chronic pain hip/back: on fentanyl and oxycodone at home -neg for any acute fracture, mild translucency? -avoid fentanyl, likely causing confusion *Malnutrition: *Tobacco abuse: *HTN: On Toprol at home *GERD: P: -Steroids (wean), Nebs/RT -PRN supplemental O2 wean as able -vinnie, pending SC/BC -Dr. Loredo for consult and possible bronchoscopy - -Dietary consult -Smoking cessation counseling -pt/ot -ppx: Lovenox/home ppi Medical - PN: Qual - Stroke Symptom Onset Unknown: No - VTE Deep Vein Thrombosis/Pulmonary Embolism Present on Admission: No
[2019-02-02] MEDS ORDERED: IPRATROPIUM/ALBUTEROL 3 ML AMPUL.NEB NEB PRN (08:12)
[2019-02-02 08:36] LABS: Basophils # (Auto) 0 K/mcL (0.0-0.3); Basophils % (Auto) 0 % (0.0-2.0); Eosinophils # (Auto) 0 K/mcL (0.0-0.7); Eosinophils % (Auto) 0 % (0.0-7.0); Granulocytes % (Auto) 94.8 % (38.0-78.0); Lymphocytes # (Auto) 0.6 K/mcL (1.5-4.8); Lymphocytes % (Auto) 3.2 % (15.5-49.0); Mean Corpuscular HGB Conc 32.9 g/dL (31.0-36.0); Monocytes # (Auto) 0.4 K/mcL (0.1-0.9); Platelet Count 625 K/mcL (140-440); RBC 3.69 M/mcL (4.50-5.90); Red Cell Distribution Width 13.4 % (11.5-14.5)
[2019-02-02] MEDS: ENOXAPARIN 40 MG/0.4 ML SYRINGE SQ SCH (08:45)
[2019-02-02] MEDS: GABAPENTIN 300 MG CAPSULE PO SCH ×3 (08:45→21:01)
[2019-02-02] MEDS: INSULIN LISPRO 1 UNIT/0.01 ML UNIT SQ SCH ×3 (12:01→21:00)
[2019-02-02] MEDS: METOPROLOL TARTRATE 25 MG TABLET PO SCH (21:01)
[2019-02-03] MEDS: IPRATROPIUM/ALBUTEROL 3 ML AMPUL.NEB NEB SCH ×4 (00:06→18:46)
[2019-02-03] MEDS: oxyCODONE HCL 5 MG TABLET PO PRN ×5 (03:44→21:38)
[2019-02-03] MEDS: PIPERACILLIN SODIUM/TAZOBACTAM 3.375 GM in DEXTROSE 5% IN WATER 50 ML IV SCH ×3 (05:45→17:48)
[2019-02-03] MEDS: 0.9 % SODIUM CHLORIDE 10 ML SYRINGE IV SCH ×3 (05:45→21:40)
[2019-02-03] MEDS: methylPREDNISolone SOD SUCC 125 MG/2 ML VIAL IV SCH (05:46)
[2019-02-03 05:48] LABS: Basophils # (Auto) 0 K/mcL (0.0-0.3); Basophils % (Auto) 0 % (0.0-2.0); Eosinophils # (Auto) 0 K/mcL (0.0-0.7); Eosinophils % (Auto) 0 % (0.0-7.0); Granulocytes % (Auto) 94.1 % (38.0-78.0); Lymphocytes # (Auto) 0.6 K/mcL (1.5-4.8); Lymphocytes % (Auto) 3.2 % (15.5-49.0); Mean Cell Volume 91.1 fL (80.0-100.0); Mean Corpuscular HGB Conc 31.9 g/dL (31.0-36.0); Monocytes # (Auto) 0.5 K/mcL (0.1-0.9); Monocytes % (Auto) 2.7 % (1.0-12.0); Platelet Count 691 K/mcL (140-440); RBC 3.69 M/mcL (4.50-5.90); Red Cell Distribution Width 13.8 % (11.5-14.5)
[2019-02-03 05:52] LABS: ALT/SGPT 41 U/l (0-40); Albumin 2.5 gm/dL (3.2-5.2); Albumin/Globulin Ratio 0.7 (1.0-2.3); Alkaline Phosphatase 243 U/L (39-117); Bilirubin,Direct < 0.2 mg/dL (0.0-0.3); Blood Urea Nitrogen 21 mg/dl (8-23); Gamma Glutamyl Transpeptidase 154 U/L (8-61); Uric Acid 2.2 mg/dL (2.5-8.0)
[2019-02-03] MEDS: HYDROmorphone 2 MG/ML VIAL IV PRN ×2 (06:58→10:53)
[2019-02-03] MEDS: OMEPRAZOLE 20 MG CAPSULE PO SCH (06:59)
[2019-02-03] MEDS: INSULIN LISPRO 1 UNIT/0.01 ML UNIT SQ SCH ×4 (07:03→21:39)
--- NOTE | 2019-02-03 07:19 | Internal Med Progress Note ---
Medical - PN: Subj Patient information: Note initiated : 02/03/19 at 7:14 am Service Date, if different from initiated Date: [] Patient: Dawson Abdi 68 y/o M admitted on 01/31/19 for Shortness of breath. Chief Complaint: [] Interval history: Mr. Abdi is a 68 year old M with history of severe emphysema, presents to the emergency room today from the pulmonary clinic for evaluation of shortness of breath. The patient has had 3 visits to the emergency room over the last 1 month. He was diagnosed with a lung mass, and was advised to have a CT-guided biopsy. It seems that CT-guided biopsy was not feasible and therefore the patient was referred to pulmonary for bronchoscopy guided biopsy. The patient was evaluated in the pulmonary clinic today, the patient was very short of breath tachycardic and a low-grade temperature and therefore sent to the emergency room. According to the pulmonary note the patient was also confused and hallucinating. He was recently started on fentanyl. Patient's PFT was done recently which shows patient has severe obstructive lung disease. The patient notes that he has been short of breath for the last month or so, he has chest pain left side when he coughs, he has progressive decline in his effort tolerance, even walking a few feet makes him very short of breath. He has recently been started on oxygen I believe he [place] 2 L [place]. He has cough but did not quantify his sputum production. On presentation to the emergency room patient was hemodynamically stable and afebrile, he was placed on 3 L of oxygen to keep his oxygen saturation more than 90%. Labs show a leukocytosis WBC 18.6, hemoglobin 11.5 platelets 12/04/1993. Chemistry was unremarkable glucose 168, albumin is 2.8 and alkaline phosphatase is 395, patient has elevated pro-calcitonin 1.02. ABG 7.47/41/89 Patient is being admitted to the hospital for further management as the patient cannot undergo a bronchoscopy as an outpatient. Patient also has pneumonia likely postobstructive 02/01 pt seen examined, no acute change since yesterday, still sob with minimal activity on antibiotics, plan of care reviewed with pulmonary, will appreciate their help in getting a biopsy once patient is optimized. 02/02 Slept okay until about 4AM. Has mild productive cough. Shortness of breath improving. Seen by pulmonology yesterday plan for bronchoscopy with biopsy within the next 1-2 weeks as patient recovers from acute illness. Has this chronic pain right hip around to the back. No other events, no other acute complaints. 02/03 Slept well last night. Shortness of breath slowly improving. No real cough anymore. Denies fevers chills. No overnight events. No new complaints. Review of Systems: denies headache/fever/chills/nausea/vomiting/abdominal pain/diarrhea. Otherwise see above. - Constitutional Vitals: Vital Signs Temp Pulse Resp BP Pulse Ox 98.0 F 69 24 H 134/71 93 02/03/19 06:48 02/03/19 06:48 02/03/19 06:48 02/03/19 06:48 02/03/19 06:48 Period Temp Pulse Resp BP Sys/Dudley Pulse Ox Last 24 Hr 97.9 F-98.5 F 65-95 16-28 121-135/60-84 90-95 Intake and Output 02/02/19 02/03/19 02/03/19 21:59 05:59 13:59 Intake Total 670 850 Output Total 825 Balance -155 850 Weight 53.297 kg Intake & Output: Intake & Output 02/02/19 02/03/19 02/03/19 21:59 05:59 13:59 Intake Total 670 850 Output Total 825 Balance -155 850 Weight 53.297 kg Intake: IV 50 50 Zosyn 3.375 gm In Dextrose 5% 50 50 in Water 50 ml @ 100 mls/hr IV Q6H [facility] Rx#:[id number] Oral 620 800 Output: Void Amount 825 Other: Meal Dinner Percent of Meal Consumed 100% Feeding Ability Independent Urine Appearance Clear Urine Color Dark Yellow Stool Size Moderate Stool Consistency Soft # Voids 1 # Bowel Movements 1 1 Exam: General: Alert, Awake, No acute Distress Eyes/N/T: EOMI, Head/Neck: neck supple, CV: RRR, No murmurs, Pulm: Decreased bilaterally but better aeration today, no wheezing. Abd: soft, nontender, +BS x4 Ext: no clubbing/cyanosis/edema Neuro: Alert, no focal deficits, moves all extremities, Skin: warm/dry Medical - PN: Obj Da - Labs CBC & Chem 7: 02/03/19 04:20 02/03/19 04:20 Labs: Abnormal Lab Results 02/03/19 02/03/19 02/02/19 04:20 04:20 07:48 WBC 19.4 H 19.5 H RBC 3.69 L 3.69 L Hgb 10.7 L 10.9 L Hct 33.6 L 33.2 L Plt Count 691 H 625 H MPV 7.2 L Gran % 94.1 H 94.8 H Lymph % (Auto) 3.2 L 3.2 L Gran # 18.3 H 18.5 H Lymph # (Auto) 0.6 L 0.6 L Platelet Estimate Chloride Creatinine Glucose 159 H Uric Acid 2.2 L GGT 154 H ALT 41 H Alkaline Phosphatase 243 H Albumin 2.5 L Globulin Albumin/Globulin Ratio 0.7 L 02/02/19 02/01/19 02/01/19 04:22 10:35 10:35 WBC RBC 3.81 L Hgb 11.2 L Hct 34.2 L Plt Count 555 H MPV 7.3 L Gran % 94.6 H Lymph % (Auto) 3.5 L Gran # 9.0 H Lymph # (Auto) 0.3 L Platelet Estimate Chloride Creatinine 0.6 L 0.6 L Glucose 161 H 182 H Uric Acid 2.0 L 2.3 L GGT 144 H 165 H ALT Alkaline Phosphatase 287 H 311 H Albumin 2.6 L 2.7 L Globulin 4.1 H 4.0 H Albumin/Globulin Ratio 0.6 L 0.7 L 01/31/19 01/31/19 18:52 17:13 WBC 18.6 H RBC 3.97 L Hgb 11.5 L Hct 35.5 L Plt Count 594 H MPV 7.2 L Gran % Lymph % (Auto) Gran # Lymph # (Auto) Platelet Estimate Increased A Chloride 93 L Creatinine Glucose 168 H Uric Acid GGT ALT Alkaline Phosphatase 395 H Albumin 2.9 L Globulin 3.8 H Albumin/Globulin Ratio 0.8 L Meds: Medications Acetaminophen (Tylenol) 650 mg PO Q6HP PRN PRN Reason: PAIN/FEVER > 101 Albuterol Sulfate (Ventolin) 2.5 mg NEB Q2HP PRN PRN Reason: Shortness Of Breath Albuterol/Ipratropium (Duoneb) 3 ml NEB Q6HP PRN PRN Reason: Shortness Of Breath Albuterol/Ipratropium (Duoneb) 3 ml NEB Q6HRT [facility] Last Admin: 02/03/19 00:06 Dose: 3 ml Documented by: Diagnostic Test (Pha) (Accu-Chek) 1 each FS [facility] Last Admin: 02/03/19 07:02 Dose: 1 each Documented by: Enoxaparin Sodium (Lovenox) 40 mg SQ DAILY [facility] Last Admin: 02/02/19 08:45 Dose: 40 mg Documented by: Gabapentin (Neurontin) 300 mg PO TID [facility] Last Admin: 02/02/19 21:01 Dose: 300 mg Documented by: Hydromorphone HCl (Dilaudid) 0.5 mg IV Q2HP PRN PRN Reason: PAIN LEVEL > 6 Last Admin: 02/03/19 06:58 Dose: 0.5 mg Documented by: Piperacillin Sod/Tazobactam (Sod 3.375 gm/ Dextrose) 50 mls @ 100 mls/hr IV Q6H [facility]; Protocol Last Admin: 02/03/19 05:45 Dose: 100 mls/hr Documented by: Insulin Human Lispro (Humalog) 0 unit SQ [facility]; Protocol Last Admin: 02/03/19 07:03 Dose: Not Given Documented by: Methylprednisolone Sodium Succinate (Solu-Medrol) 40 mg IV Q8 [facility] Last Admin: 02/03/19 05:46 Dose: 40 mg Documented by: Metoprolol Tartrate (Lopressor) 12.5 mg PO BID [facility] Last Admin: 02/02/19 21:01 Dose: 12.5 mg Documented by: Naloxone HCl (Narcan) 0.1 mg IV Q2MIN PRN PRN Reason: Opiate Reversal Omeprazole (Prilosec) 20 mg PO QAMAC [facility] Last Admin: 02/03/19 06:59 Dose: 20 mg Documented by: Ondansetron HCl (Zofran) 4 mg IV Q6HP PRN PRN Reason: Nausea And Vomiting Oxycodone HCl (Roxicodone) 5 mg PO Q4HP PRN PRN Reason: PAIN LEVEL 3-6 Last Admin: 02/03/19 03:44 Dose: 5 mg Documented by: Sodium Chloride (Saline Flush) 10 ml IV Q8 [facility] Last Admin: 02/03/19 05:45 Dose: 10 ml Documented by: Medical - PN: A/P - Time Spent With Patient Total time spent is greater than 50% in coordination of care (as documented) at patient's floor/unit and/or counseling patient: - Narrative A/P Narrative: A: *AECOPD (2L NC @home), severe underlying emphysema: *Acute on chronic hypoxic respiratory failure: -now on 2-3L NC *Pneumonia, postobstructive: MRSA screen negative -leukocytosis steroid induced *Lung mass RLL, likely malignant: unable to get CT-guided lung bx by [facility] given safety concerns -needs bronchoscopic biopsy, will appreciate pulmonary help in this regard -hopefully done soon, will be done on outpt basis *chronic pain hip/back: on fentanyl and oxycodone at home -neg for any acute fracture, mild translucency? -avoid fentanyl, likely causing confusion *Malnutrition: *Tobacco abuse: *HTN: On Toprol at home *GERD: P: -Steroids (wean), Nebs/RT -PRN supplemental O2 wean as able -vinnie, pending SC/BC -Dr. Loredo for consult, bronchoscopy likely as outpt - -Dietary consult -Smoking cessation counseling -cont home BB -pt/ot -CM for SNF -ppx: Lovenox/home ppi Medical - PN: Qual - Stroke Symptom Onset Unknown: No - VTE Deep Vein Thrombosis/Pulmonary Embolism Present on Admission: No
[2019-02-03 08:12] LABS: Band Neutrophils % 3 % (0-10); Lymphocytes % 5 % (15-49); Platelet Estimate INCREASED (NORMAL); RBC Morphology NORMAL (NORMAL); Segmented Neutrophils % 92 % (38-78)
[2019-02-03] MEDS: METOPROLOL TARTRATE 25 MG TABLET PO SCH ×2 (08:28→21:38)
[2019-02-03] MEDS: ENOXAPARIN 40 MG/0.4 ML SYRINGE SQ SCH (08:29)
[2019-02-03] MEDS: GABAPENTIN 300 MG CAPSULE PO SCH ×3 (08:29→21:38)
--- NOTE | 2019-02-03 09:22 | Discharge Summary ---
Medical - DS: Prov Patient information: Note initiated : 02/03/19 at 9:18 am Service Date, if different from initiated Date: [] Patient: Dawson Abdi 68 y/o M admitted on 01/31/19 for Shortness of breath. Chief Complaint: [] Date of admission: 01/31/19 20:44 Discharge date: 02/04/19 Primary care physician: Katina Reyes Consults: 01/31/19 Consult to Physician [CONS] Stat Comment: Consulting Provider: Jluis Foy Reason For Exam: Physician to Consult 01/31/19 20:50 Consult to Physician [CONS] Stat Comment: Consulting Provider: Chris Loredo Reason For Exam: Physician to Consult Medical - DS: Meds - Discharge Medications Prescriptions: Amoxicillin/Potassium Clav [Augmentin] 875 mg PO Q12H #6 tab Lactobacillus [Culturelle] 1 cap PO BID #40 cap oxyCODONE HCL [Oxycodone HCl] See Rx Instructions PO ONCE #20 tab predniSONE [Prednisone] 40 mg PO DAILY #1 tab Active and Home Medications: Home Medications ipratropium 20 mcg-albuterol 100 mcg/actuation mist for inhalation 1 puff NEB QID PRN 01/22/19 [History Confirmed 02/02/19 Last Taken 01/31/19] Gabapentin [Neurontin] 300 mg PO TID 01/31/19 [History Confirmed 01/31/19 Last Taken 01/31/19 10:00] Omeprazole [Prilosec] 1 tab PO QDAY 01/31/19 [History Confirmed 01/31/19 Last Taken 01/29/19 08:00] fentanyl 25 mcg/hr transdermal patch 1 patch TRANSDERMA Q72H 01/31/19 [History Confirmed 01/31/19 Last Taken 01/30/19 23:30] oxycodone 10 mg tablet See Rx Instructions PO ONCE 01/31/19 [History Confirmed 01/31/19 Last Taken 01/31/19 10:00] Metoprolol Tartrate [Lopressor] 12.5 mg PO BID 02/02/19 [History Confirmed 02/02/19 Last Taken Unknown] Spiriva Respimat 2 puff INH DAILY 02/02/19 [History Confirmed 02/02/19 Last Taken Unknown] Home Medications ipratropium 20 mcg-albuterol 100 mcg/actuation mist for inhalation 1 puff NEB QID PRN 01/22/19 [History Confirmed 02/02/19 Last Taken 01/31/19] Gabapentin [Neurontin] 300 mg PO TID 01/31/19 [History Confirmed 01/31/19 Last Taken 01/31/19 10:00] Omeprazole [Prilosec] 1 tab PO QDAY 01/31/19 [History Confirmed 01/31/19 Last Taken 01/29/19 08:00] oxycodone 10 mg tablet See Rx Instructions PO ONCE 01/31/19 [History Confirmed 01/31/19 Last Taken 01/31/19 10:00] Metoprolol Tartrate [Lopressor] 12.5 mg PO BID 02/02/19 [History Confirmed 02/02/19 Last Taken Unknown] Spiriva Respimat 2 puff INH DAILY 02/02/19 [History Confirmed 02/02/19 Last Taken Unknown] Amoxicillin/Potassium Clav [Augmentin] 875 mg PO Q12H #6 tab 02/03/19 [Rx Last Taken Unknown] Lactobacillus [Culturelle] 1 cap PO BID #40 cap 02/03/19 [Rx Last Taken Unknown] predniSONE [Prednisone] 40 mg PO DAILY #1 tab 02/03/19 [Rx Last Taken Unknown] Medical - DS: Hosp Hospital course: Mr. Abdi is a 68 year old M Mr. Abdi is a 68 year old M with history of severe emphysema, presents to the emergency room today from the pulmonary clinic for evaluation of shortness of breath. The patient has had 3 visits to the emergency room over the last 1 month. He was diagnosed with a lung mass, and was advised to have a CT-guided biopsy. It seems that CT-guided biopsy was not feasible and therefore the patient was referred to pulmonary for bronchoscopy guided biopsy. The patient was evaluated in the pulmonary clinic today, the patient was very short of breath tachycardic and a low-grade temperature and therefore sent to the emergency room. According to the pulmonary note the patient was also confused and hallucinating. He was recently started on fentanyl. Patient's PFT was done recently which shows patient has severe obstructive lung disease. The patient notes that he has been short of breath for the last month or so, he has chest pain left side when he coughs, he has progressive decline in his effort tolerance, even walking a few feet makes him very short of breath. He has recently been started on oxygen I believe he takes 2 L at base. He has cough but did not quantify his sputum production. On presentation to the emergency room patient was hemodynamically stable and afebrile, he was placed on 3 L of oxygen to keep his oxygen saturation more than 90%. Labs show a leukocytosis WBC 18.6, hemoglobin 11.5 platelets 12/04/1993. Chemistry was unremarkable glucose 168, albumin is 2.8 and alkaline phosphatase is 395, patient has elevated pro-calcitonin 1.02. ABG 7.47/ Patient is being admitted to the hospital for further management as the patient cannot undergo a bronchoscopy as an outpatient. Patient also has pneumonia likely postobstructive 02/01 pt seen examined, no acute change since yesterday, still sob with minimal activity on antibiotics, plan of care reviewed with pulmonary, will appreciate their help in getting a biopsy once patient is optimized. / Slept okay until about 4AM. Has mild productive cough. Shortness of breath improving. Seen by pulmonology yesterday plan for bronchoscopy with biopsy within the next 1-2 weeks as patient recovers from acute illness. Has this chronic pain right hip around to the back. No other events, no other acute complaints. 02/03 Slept well last night. Shortness of breath slowly improving. No real cough anymore. Denies fevers chills. No overnight events. No new complaints. 02/04 Feeling better. Denies cough. Shortness of breath continues to improve. No overnight events. No fevers chills. Discharge diagnosis: Acute exacerbation COPD hypoxic respiratory failure lung mass Secondary discharge diagnosis: Malnutrition tobacco abuse hypertension GERD - Time Spent with Patient Total time spent providing and/or coordinating discharge services: Greater than 30 minutes Medical - DS: Exam - Constitutional Vitals: Vital Signs Temp Pulse Pulse Resp BP BP Pulse Ox 02/03/19 06:48 98.0 F 69 24 H 134/71 93 02/03/19 03:25 98.1 F 88 24 H 121/65 90 02/02/19 23:30 98.3 F 71 16 121/60 95 02/02/19 19:06 94 H 16 02/02/19 18:40 98.3 F 90 20 135/84 92 02/02/19 16:00 98.2 F 95 H 24 H 135/73 92 02/02/19 13:50 65 18 92 02/02/19 13:48 65 18 02/02/19 12:23 98.5 F 80 28 H 129/67 92 Intake and Output 02/02/19 02/03/19 02/03/19 21:59 05:59 13:59 Intake Total 670 850 700 Output Total 825 Balance -155 850 700 Intake: IV 50 50 Zosyn 3.375 gm In Dextrose 5% 50 50 in Water 50 ml @ 100 mls/hr IV Q6H [facility] Rx#:[id number] Oral 620 800 700 Output: Void Amount 825 Other: Meal Dinner Breakfast Percent of Meal Consumed 100% 90% Feeding Ability Independent Urine Appearance Clear Urine Color Dark Yellow Stool Size Moderate Stool Consistency Soft # Voids 1 # Bowel Movements 1 1 Weight 53.297 kg Medical - DS: Data Labs on day of discharge: Labs from last 24 hours 02/03/19 02/03/19 02/03/19 04:20 04:20 04:20 WBC 19.4 H RBC 3.69 L Hgb 10.7 L Hct 33.6 L MCV 91.1 MCH 29.0 MCHC 31.9 RDW 13.8 Plt Count 691 H MPV 7.4 Gran % 94.1 H Lymph % (Auto) 3.2 L [place] % (Auto) 2.7 Eos % (Auto) 0 Baso % (Auto) 0 Gran # 18.3 H Lymph # (Auto) 0.6 L [place] # (Auto) 0.5 Eos # (Auto) 0 Baso # (Auto) 0 Total Counted 100 Seg Neutrophils % 92 H Band Neutrophils % 3 Lymphocytes % 5 L Platelet Estimate Increased A RBC Morphology Normal Sodium 141 Potassium 4.1 Chloride 101 Carbon Dioxide 27 Anion Gap 13.0 BUN 21 Creatinine 0.7 GFR Calculation 98 Glucose 159 H Uric Acid 2.2 L Calcium 9.0 Phosphorus 3.2 Magnesium 2.1 Total Bilirubin 0.2 Direct Bilirubin < 0.2 GGT 154 H AST 34 ALT 41 H Alkaline Phosphatase 243 H Lactate Dehydrogenase 193 Total Protein 6.2 Albumin 2.5 L Globulin 3.7 Albumin/Globulin Ratio 0.7 L Triglycerides 75 Preliminary micro results at discharge 01/31/19 17:40 Blood Culture - Preliminary Blood 01/31/19 17:45 Blood Culture - Preliminary Blood 04/05/19 14:32 Sputum Culture - Preliminary Sputum - Aerosol Induced Medical - DS: A/P - Patient/Caregiver Discharge Instructions Activity: as per physical therapy Diet: Regular Diet Prescriptions: Amoxicillin/Potassium Clav [Augmentin] 875 mg PO Q12H #6 tab Lactobacillus [Culturelle] 1 cap PO BID #40 cap oxyCODONE HCL [Oxycodone HCl] See Rx Instructions PO ONCE #20 tab predniSONE [Prednisone] 40 mg PO DAILY #1 tab Other Amb Orders: OT Discharge Order Location: None Selected Physical Therapy at Discharge - General Location: None Selected - Follow up Plan Follow up with: Katnia Reyes ARNP [Primary Care Provider] - Chris Loredo MD [Physician] - Disposition: Xfer SNF Prognosis: Fair Rehab Potential: Fair I certify that the patient requires SNF services: Yes Overall status at discharge: patient is back to baseline Medical - DS: Qual - VTE Deep Vein Thrombosis/Pulmonary Embolism Present on Admission: No
[2019-02-04] MEDS: PIPERACILLIN SODIUM/TAZOBACTAM 3.375 GM in DEXTROSE 5% IN WATER 50 ML IV SCH ×3 (00:43→11:44)
[2019-02-04] MEDS: IPRATROPIUM/ALBUTEROL 3 ML AMPUL.NEB NEB SCH ×3 (00:43→13:18)
[2019-02-04] MEDS: oxyCODONE HCL 5 MG TABLET PO PRN ×2 (04:31→11:51)
[2019-02-04] MEDS: ACETAMINOPHEN 325 MG TABLET PO PRN ×2 (04:32→11:51)
[2019-02-04] MEDS: 0.9 % SODIUM CHLORIDE 10 ML SYRINGE IV SCH (05:57)
[2019-02-04 06:15] LABS: Basophils # (Auto) 0 K/mcL (0.0-0.3); Basophils % (Auto) 0.2 % (0.0-2.0); Eosinophils # (Auto) 0 K/mcL (0.0-0.7); Eosinophils % (Auto) 0 % (0.0-7.0); Granulocytes % (Auto) 81.9 % (38.0-78.0); Lymphocytes # (Auto) 1.7 K/mcL (1.5-4.8); Lymphocytes % (Auto) 9.8 % (15.5-49.0); Mean Cell Volume 90.2 fL (80.0-100.0); Mean Corpuscular HGB Conc 32.7 g/dL (31.0-36.0); Monocytes # (Auto) 1.4 K/mcL (0.1-0.9); Monocytes % (Auto) 8.1 % (1.0-12.0); Platelet Count 722 K/mcL (140-440); RBC 3.82 M/mcL (4.50-5.90); Red Cell Distribution Width 14.2 % (11.5-14.5)
[2019-02-04 06:32] LABS: Blood Urea Nitrogen 16 mg/dl (8-23)
[2019-02-04] MEDS: OMEPRAZOLE 20 MG CAPSULE PO SCH (07:24)
[2019-02-04] MEDS: INSULIN LISPRO 1 UNIT/0.01 ML UNIT SQ SCH ×2 (07:27→11:43)
[2019-02-04] MEDS: HYDROmorphone 2 MG/ML VIAL IV PRN (07:37)
[2019-02-04] MEDS ORDERED: predniSONE 20 MG TABLET PO SCH (08:00)
[2019-02-04] MEDS: METOPROLOL TARTRATE 25 MG TABLET PO SCH (08:23)
[2019-02-04] MEDS: GABAPENTIN 300 MG CAPSULE PO SCH (08:24)
[2019-02-04] MEDS: ENOXAPARIN 40 MG/0.4 ML SYRINGE SQ SCH (09:35)
--- NOTE | 2019-02-04 09:53 | Internal Med Progress Note ---
Medical - PN: Subj Patient information: Note initiated : 02/04/19 at 9:50 am Service Date, if different from initiated Date: [] Patient: Dawson Abdi 68 y/o M admitted on 01/31/19 for Shortness of breath. Chief Complaint: [] Interval history: Mr. Abdi is a 68 year old M with history of severe emphysema, presents to the emergency room today from the pulmonary clinic for evaluation of shortness of breath. The patient has had 3 visits to the emergency room over the last 1 month. He was diagnosed with a lung mass, and was advised to have a CT-guided biopsy. It seems that CT-guided biopsy was not feasible and therefore the patient was referred to pulmonary for bronchoscopy guided biopsy. The patient was evaluated in the pulmonary clinic today, the patient was very short of breath tachycardic and a low-grade temperature and therefore sent to the emergency room. According to the pulmonary note the patient was also confused and hallucinating. He was recently started on fentanyl. Patient's PFT was done recently which shows patient has severe obstructive lung disease. The patient notes that he has been short of breath for the last month or so, he has chest pain left side when he coughs, he has progressive decline in his effort tolerance, even walking a few feet makes him very short of breath. He has recently been started on oxygen I believe he takes 2 L at base. He has cough but did not quantify his sputum production. On presentation to the emergency room patient was hemodynamically stable and afebrile, he was placed on 3 L of oxygen to keep his oxygen saturation more than 90%. Labs show a leukocytosis WBC 18.6, hemoglobin 11.5 platelets 12/04/1993. Chemistry was unremarkable glucose 168, albumin is 2.8 and alkaline phosphatase is 395, patient has elevated pro-calcitonin 1.02. ABG 7.47/41/89 Patient is being admitted to the hospital for further management as the patient cannot undergo a bronchoscopy as an outpatient. Patient also has pneumonia likely postobstructive 02/01 pt seen examined, no acute change since yesterday, still sob with minimal activity on antibiotics, plan of care reviewed with pulmonary, will appreciate their help in getting a biopsy once patient is optimized. 02/02 Slept okay until about 4AM. Has mild productive cough. Shortness of breath improving. Seen by pulmonology yesterday plan for bronchoscopy with biopsy within the next 1-2 weeks as patient recovers from acute illness. Has this chronic pain right hip around to the back. No other events, no other acute complaints. 02/03 Slept well last night. Shortness of breath slowly improving. No real cough anymore. Denies fevers chills. No overnight events. No new complaints. 02/04 Feeling better. Denies cough. Shortness of breath continues to improve. No overnight events. No fevers chills. Review of Systems: denies headache/fever/chills/nausea/vomiting/abdominal pain/diarrhea. Otherwise see above. - Constitutional Vitals: Vital Signs Temp Pulse Resp BP Pulse Ox 98.2 F 58 L 16 137/63 94 02/04/19 07:05 02/04/19 07:18 02/04/19 07:18 02/04/19 07:05 02/04/19 07:43 Period Temp Pulse Resp BP Sys/[place] Pulse Ox Last 24 Hr 97.7 F-98.3 F 58-95 16-20 127-140/63-88 92-97 Intake and Output 02/03/19 02/04/19 02/04/19 21:59 05:59 13:59 Intake Total 590 550 50 Output Total 250 650 600 Balance 340 -100 -550 Weight 53.297 kg Intake & Output: Intake & Output 02/03/19 02/04/19 02/04/19 21:59 05:59 13:59 Intake Total 590 550 50 Output Total 250 650 600 Balance 340 -100 -550 Weight 53.297 kg Intake: IV 50 50 50 Zosyn 3.375 gm In Dextrose 5% 50 50 50 in Water 50 ml @ 100 mls/hr IV Q6H [facility] Rx#:[id number] Oral 540 500 Output: Void Amount 250 650 600 Other: Meal Lunch Percent of Meal Consumed 75% Feeding Ability Independent Urine Appearance Clear Urine Color Dark Yellow Bright Yellow Urine Odor Normal Stool Size Moderate Moderate Stool Color Brown Brown Stool Consistency Soft Soft Loose # Voids 1 1 # Bowel Movements 1 Exam: General: Alert, Awake, No acute Distress Eyes/N/T: EOMI, Head/Neck: neck supple, CV: RRR, No murmurs, Pulm: Good aeration today lateral, no wheezing. Abd: soft, nontender, +BS x4 Ext: no clubbing/cyanosis/edema Neuro: Alert, no focal deficits, moves all extremities, Skin: warm/dry Medical - PN: Obj Da - Labs CBC & Chem 7: 02/04/19 04:25 02/04/19 04:25 Labs: Abnormal Lab Results 02/04/19 02/04/19 02/03/19 04:25 04:25 04:20 WBC 17.2 H RBC 3.82 L Hgb 11.3 L Hct 34.5 L Plt Count 722 H MPV 7.1 L Gran % 81.9 H Lymph % (Auto) 9.8 L Gran # 14.1 H Lymph # (Auto) [place] # (Auto) 1.4 H Seg Neutrophils % 92 H Lymphocytes % 5 L Platelet Estimate Increased A Creatinine 0.6 L Glucose Uric Acid Calcium 8.4 L GGT ALT Alkaline Phosphatase Albumin Globulin Albumin/Globulin Ratio 02/03/19 02/03/19 02/02/19 04:20 04:20 07:48 WBC 19.4 H 19.5 H RBC 3.69 L 3.69 L Hgb 10.7 L 10.9 L Hct 33.6 L 33.2 L Plt Count 691 H 625 H MPV 7.2 L Gran % 94.1 H 94.8 H Lymph % (Auto) 3.2 L 3.2 L Gran # 18.3 H 18.5 H Lymph # (Auto) 0.6 L 0.6 L [place] # (Auto) Seg Neutrophils % Lymphocytes % Platelet Estimate Creatinine Glucose 159 H Uric Acid 2.2 L Calcium GGT 154 H ALT 41 H Alkaline Phosphatase 243 H Albumin 2.5 L Globulin Albumin/Globulin Ratio 0.7 L 02/02/19 02/01/19 02/01/19 04:22 10:35 10:35 WBC RBC 3.81 L Hgb 11.2 L Hct 34.2 L Plt Count 555 H MPV 7.3 L Gran % 94.6 H Lymph % (Auto) 3.5 L Gran # 9.0 H Lymph # (Auto) 0.3 L [place] # (Auto) Seg Neutrophils % Lymphocytes % Platelet Estimate Creatinine 0.6 L 0.6 L Glucose 161 H 182 H Uric Acid 2.0 L 2.3 L Calcium GGT 144 H 165 H ALT Alkaline Phosphatase 287 H 311 H Albumin 2.6 L 2.7 L Globulin 4.1 H 4.0 H Albumin/Globulin Ratio 0.6 L 0.7 L Meds: Medications Acetaminophen (Tylenol) 650 mg PO Q6HP PRN PRN Reason: PAIN/FEVER > 101 Last Admin: 02/04/19 04:32 Dose: 650 mg Documented by: Albuterol Sulfate (Ventolin) 2.5 mg NEB Q2HP PRN PRN Reason: Shortness Of Breath Albuterol/Ipratropium (Duoneb) 3 ml NEB Q6HP PRN PRN Reason: Shortness Of Breath Albuterol/Ipratropium (Duoneb) 3 ml NEB Q6HRT [facility] Last Admin: 02/04/19 07:13 Dose: 3 ml Documented by: Diagnostic Test (Pha) (Accu-Chek) 1 each FS [facility] Last Admin: 02/04/19 07:24 Dose: 1 each Documented by: Enoxaparin Sodium (Lovenox) 40 mg SQ DAILY [facility] Last Admin: 02/04/19 09:35 Dose: 40 mg Documented by: Gabapentin (Neurontin) 300 mg PO TID [facility] Last Admin: 02/04/19 08:24 Dose: 300 mg Documented by: Hydromorphone HCl (Dilaudid) 0.5 mg IV Q2HP PRN PRN Reason: PAIN LEVEL > 6 Last Admin: 02/04/19 07:37 Dose: 0.5 mg Documented by: Piperacillin Sod/Tazobactam (Sod 3.375 gm/ Dextrose) 50 mls @ 100 mls/hr IV Q6H [facility]; Protocol Last Infusion: 02/04/19 07:38 Dose: Infused Documented by: Insulin Human Lispro (Humalog) 0 unit SQ [facility]; Protocol Last Admin: 02/04/19 07:27 Dose: Not Given Documented by: Metoprolol Tartrate (Lopressor) 12.5 mg PO BID [facility] Last Admin: 02/04/19 08:23 Dose: 12.5 mg Documented by: Naloxone HCl (Narcan) 0.1 mg IV Q2MIN PRN PRN Reason: Opiate Reversal Omeprazole (Prilosec) 20 mg PO QAMAC [facility] Last Admin: 02/04/19 07:24 Dose: 20 mg Documented by: Ondansetron HCl (Zofran) 4 mg IV Q6HP PRN PRN Reason: Nausea And Vomiting Oxycodone HCl (Roxicodone) 5 mg PO Q4HP PRN PRN Reason: PAIN LEVEL 3-6 Last Admin: 02/04/19 04:31 Dose: 5 mg Documented by: Prednisone (Prednisone) 40 mg PO [facility] Last Admin: 02/04/19 08:24 Dose: 40 mg Documented by: Sodium Chloride (Saline Flush) 10 ml IV Q8 [facility] Last Admin: 02/04/19 05:57 Dose: 10 ml Documented by: Medical - PN: A/P - Time Spent With Patient Total time spent is greater than 50% in coordination of care (as documented) at patient's floor/unit and/or counseling patient: - Narrative A/P Narrative: A: *AECOPD (2L NC @home), severe underlying emphysema: *Acute on chronic hypoxic respiratory failure: -now on 1L NC *Pneumonia, postobstructive: MRSA screen negative -leukocytosis steroid induced, improving *Lung mass RLL, likely malignant: unable to get CT-guided lung bx by [facility] given safety concerns -needs bronchoscopic biopsy, will appreciate pulmonary help in this regard -hopefully done soon, will be done on outpt basis *chronic pain right hip/back: on fentanyl and oxycodone at home -neg for any acute fracture, mild translucency? -avoid fentanyl, likely causing confusion *Malnutrition: *Tobacco abuse: *HTN: On Toprol at home *GERD: P: -Steroids (wean), Nebs/RT -PRN supplemental O2 wean as able -zosyn, pending SC/BC -seen by Dr. Loredo, bronchoscopy likely as outpt - -Dietary consult -Smoking cessation counseling -cont home BB -pt/ot -CM for SNF -ppx: Lovenox/home ppi Medical - PN: Qual - Stroke Symptom Onset Unknown: No - VTE Deep Vein Thrombosis/Pulmonary Embolism Present on Admission: No
== END 2019-02-04 12:46 | DRG 190 ==
LOC: ED 16:31 → MEDSUR 20:44
PROVIDERS: ADMIT Internal Medicine; ATTEND Internal Medicine

== ENCOUNTER 2019-02-19 23:08 | Inpatient (IN) ==
[2019-02-19] MEDS ORDERED: ACETAMINOPHEN 325 MG TABLET PO ONE (23:24)
[2019-02-20] MEDS ORDERED: LACTATED RINGERS 1,000 ML IV ONE (00:41)
[2019-02-20] MEDS ORDERED: VANCOMYCIN 1,000 MG in 0.9 % SODIUM CHLORIDE 250 ML IV ONE (00:43)
[2019-02-20] MEDS ORDERED: PIPERACILLIN SODIUM/TAZOBACTAM 3.375 GM in DEXTROSE 5% IN WATER 50 ML IV ONE (00:44)
--- NOTE | 2019-02-20 00:52 | Emergency Department Note ---
Fever HPI - General Chief Complaint: Fever Stated Complaint: Fever for a week Time Seen by Provider: 02/20/19 00:22 Mode of arrival: wheelchair - History of Present Illness HPI Narrative: This gentleman recently underwent bronchoscopy for a large mass on the right side which is thought to be cancerous. History of smoking. A 3 x 4 cm mass in the right lung associated with adenopathy. Unfortunately they were not able to get a tissue sample with the bronchoscopy. Still basically undiagnosed except h e is CT scan done recently is certainly worrisome for cancer. He has a postobstructive pneumonia which is being treated with [facility] at the [facility]. Spite the Ceftin is running fevers off and on for a week. Is scheduled to go to [facility] for a PET scan this morning. But comes in to the ED instead. He has chest pain radiating through to the back, not significant, not changed, non-cardiac. Feels short of breath is on oxygen. Denies any ankle swelling but has had some discomfort in the right hip area as well. Denies calf swelling or lower extremity pain no recent fall, he still able to stand, once to go home buddies at the [facility] recovering from his pneumonia. MD complaint: fever - Related Data Home Medications Medication Instructions Recorded Confirmed Omeprazole [Prilosec] 1 tab PO QDAY 01/31/19 02/14/19 Spiriva Respimat 2 puff INHALATION DAILY 02/06/19 02/14/19 ipratropium-albuterol 0.5 mg-3 3 ml INHALATION QID PRN 02/06/19 02/14/19 mg(2.5 mg base)/3 mL nebulization soln Pregabalin [Lyrica] 150 mg PO BID 02/11/19 02/14/19 acetaminophen 325 mg tablet 650 mg PO QID PRN 02/14/19 02/14/19 albuterol sulfate HFA 90 2 puff INHALATION QID PRN 02/14/19 02/14/19 mcg/actuation aerosol inhaler bisacodyl 10 mg rectal suppository 10 mg MA QDAY PRN 02/14/19 02/14/19 loperamide 2 mg capsule 2 mg PO Q2-4H PRN 02/14/19 02/14/19 magnesium hydroxide 400 mg/5 mL 30 ml PO QHS PRN ml 02/14/19 02/14/19 oral suspension metoprolol succinate ER 25 mg 25 mg PO BID each 02/14/19 02/14/19 capsule sprinkle, ext. release 24 hr prednisone 10 mg tablet 40 mg PO DAILY tab 02/14/19 sodium phosphates 19 gram-7 118 ml MA ONCE PRN 02/14/19 02/14/19 gram/118 mL enema Previous Rx's Medication Instructions Recorded Lactobacillus [Culturelle] 1 cap PO BID #40 cap 02/03/19 oxyCODONE HCL [Oxycodone HCl] See Rx Instructions PO ONCE #20 tab 02/04/19 cefuroxime axetil 500 mg tablet 500 mg PO Q12H 10 Days #20 tab 02/13/19 Allergies Allergy/AdvReac Type Severity Reaction Status Date / Time No Known Drug Allergies Allergy Verified 02/14/19 09:58 Review of Systems Review of Systems: Weight loss of at least 15 pounds in the last year. All systems ED: reviewed and negative except as stated. Cardiovascular: Reports: chest pain, dyspnea on exertion Respiratory: Reports: shortness of breath, hemoptysis Gastrointestinal: Denies: abdominal pain Fever PMH - Past Medical History Medical history: Reports: other (Postherpetic neuralgia, right lung mass) Surgical history ED: Reports: non-contributory - Social History smoking status: Former smoker Alcohol use: Reports: None Physical Exam Limitations: no limitations General appearance: alert, cachectic, in distress Head: atraumatic, normocephalic Eye: Present: normal appearance, PERRL, EOMI. Absent: conjunctival injection ENT: normal exam, normal oropharynx, mucous membranes moist, TM's normal bilaterally Neck: Present: normal inspection, full ROM, trachea midline Chest: Present: normal inspection, symmetric chest wall rise. Absent: tenderness Respiratory: Present: respiratory distress, rales/crackles, wheezes, accessory muscle use, prolonged expiratory phase, other (diminished right lower lung base.) Cardiovascular: Present: regular rate, normal rhythm, tachycardia Abdominal: Present: soft, normal bowel sounds. Absent: distention, tenderness, guarding, rebound : Present: normal inspection Extremities: Present: normal inspection. Absent: tenderness, pedal edema, pretibial edema, joint swelling Back: Absent: CVA tenderness (R), CVA tenderness (L) Neurological: Present: alert, oriented X3 Psychiatric: Present: normal affect Skin: Present: warm, normal color. Absent: rash Course Vital Signs Temperature 101.9 F H 02/19/19 23:09 Pulse Rate 53 L 02/19/19 23:09 Respiratory Rate 22 02/19/19 23:09 Blood Pressure 111/65 02/19/19 23:09 Pulse Oximetry (%) 96 02/19/19 23:09 Temperature 100.5 F H 02/20/19 00:27 Pulse Rate 53 L 02/19/19 23:09 Respiratory Rate 22 02/19/19 23:09 Blood Pressure 111/65 02/19/19 23:09 Pulse Oximetry (%) 96 02/19/19 23:09 Fever - MDM Narrative Medical decision making narrative: Chest x-ray showing worsening pneumonia on the right side. At this point we will admit him for IV antibiotics. Switching his antibiotic regimen. He was given Zosyn and vancomycin in the emergency department. Also DuoNeb treatment. Solu-Medrol for wheezing. White count elevated 11,000 with left shift. Discussed hospital admission with Dr. Cary. He is still a full code at this point. Final diagnosis is #1 right-sided lung mass suspicious for cancer. #2 postobstructive pneumonia. - Lab Data Result diagrams: 02/20/19 00:52 02/20/19 00:52 Lab Results 02/20/19 02/20/19 02/20/19 Range/Units 00:52 00:52 00:52 WBC 11.6 H (4.5-11.0) K/mcL RBC 3.31 L (4.50-5.90) M/mcL Hgb 9.3 L (13.5-16.5) g/dL Hct 28.3 L (41.0-55.0) % MCV 85.3 (80.0-100.0) fL MCH 28.1 (26.0-34.0) pg MCHC 33.0 (31.0-36.0) g/dL RDW 13.7 (11.5-14.5) % Plt Count 435 (140-440) K/mcL MPV 7.5 (7.4-10.4) fL Gran % 79.6 H (38.0-78.0) % Lymph % (Auto) 9.4 L (15.5-49.0) % [place] % (Auto) 9.5 (1.0-12.0) % Eos % (Auto) 0.9 (0.0-7.0) % Baso % (Auto) 0.6 (0.0-2.0) % Gran # 9.2 H (1.8-8.0) K/mcL Lymph # (Auto) 1.1 L (1.5-4.8) K/mcL [place] # (Auto) 1.1 H (0.1-0.9) K/mcL Eos # (Auto) 0.1 (0.0-0.7) K/mcL Baso # (Auto) 0.1 (0.0-0.3) K/mcL PT 14.9 H (11.9-14.5) sec INR 1.2 H (0.9-1.1) VBG Lactic Acid (0.5-2.0) mmol/L Sodium 135 (133-145) mmol/L Potassium 4.2 (3.3-5.1) mmol/L Chloride 98 (96-108) mmol/L Carbon Dioxide 27 (22-30) mmol/L Anion Gap 10.0 (8-16) BUN 12 (8-23) mg/dl Creatinine 0.6 L (0.7-1.2) mg/dl GFR Calculation 105 Glucose 124 H (70-105) mg/dL Calcium 8.3 L (8.6-10.4) mg/dl Total Bilirubin 0.3 (0.0-1.0) mg/dL AST 19 (0-37) U/l ALT 19 (0-40) U/l Alkaline Phosphatase 246 H (39-117) U/L C-Reactive Protein 15.5 H (0.0-0.8) mg/dl Total Protein 5.7 L (5.9-8.4) gm/dL Albumin 2.3 L (3.2-5.2) gm/dL Globulin 3.4 (2.2-3.7) gm/dL Albumin/Globulin Ratio 0.7 L (1.0-2.3) 02/20/19 Range/Units 00:52 WBC (4.5-11.0) K/mcL RBC (4.50-5.90) M/mcL Hgb (13.5-16.5) g/dL Hct (41.0-55.0) % MCV (80.0-100.0) fL MCH (26.0-34.0) pg MCHC (31.0-36.0) g/dL RDW (11.5-14.5) % Plt Count (140-440) K/mcL MPV (7.4-10.4) fL Gran % (38.0-78.0) % Lymph % (Auto) (15.5-49.0) % [place] % (Auto) (1.0-12.0) % Eos % (Auto) (0.0-7.0) % Baso % (Auto) (0.0-2.0) % Gran # (1.8-8.0) K/mcL Lymph # (Auto) (1.5-4.8) K/mcL [place] # (Auto) (0.1-0.9) K/mcL Eos # (Auto) (0.0-0.7) K/mcL Baso # (Auto) (0.0-0.3) K/mcL PT (11.9-14.5) sec INR (0.9-1.1) VBG Lactic Acid 1.1 (0.5-2.0) mmol/L Sodium (133-145) mmol/L Potassium (3.3-5.1) mmol/L Chloride (96-108) mmol/L Carbon Dioxide (22-30) mmol/L Anion Gap (8-16) BUN (8-23) mg/dl Creatinine (0.7-1.2) mg/dl GFR Calculation Glucose (70-105) mg/dL Calcium (8.6-10.4) mg/dl Total Bilirubin (0.0-1.0) mg/dL AST (0-37) U/l ALT (0-40) U/l Alkaline Phosphatase (39-117) U/L C-Reactive Protein (0.0-0.8) mg/dl Total Protein (5.9-8.4) gm/dL Albumin (3.2-5.2) gm/dL Globulin (2.2-3.7) gm/dL Albumin/Globulin Ratio (1.0-2.3) Disposition Pt seen by LIFE ADVISOR/PA only: No Clinical Impression: Sepsis, Community acquired pneumonia, Shortness of breath, Chest pain, COPD (chronic obstructive pulmonary disease) with emphysema, Worsening pneumonia Disposition: Xfer As Inpt ([facility]) Condition: Serious Referrals: Katina Reyes ARNP [Primary Care Provider] -
[2019-02-20] MEDS ORDERED: IBUPROFEN 600 MG TABLET PO ONE (01:03)
[2019-02-20 01:23] LABS: Basophils # (Auto) 0.1 K/mcL (0.0-0.3); Basophils % (Auto) 0.6 % (0.0-2.0); Eosinophils # (Auto) 0.1 K/mcL (0.0-0.7); Eosinophils % (Auto) 0.9 % (0.0-7.0); Granulocytes % (Auto) 79.6 % (38.0-78.0); Lymphocytes # (Auto) 1.1 K/mcL (1.5-4.8); Lymphocytes % (Auto) 9.4 % (15.5-49.0); Mean Cell Volume 85.3 fL (80.0-100.0); Monocytes # (Auto) 1.1 K/mcL (0.1-0.9); Monocytes % (Auto) 9.5 % (1.0-12.0); Platelet Count 435 K/mcL (140-440); RBC 3.31 M/mcL (4.50-5.90); Red Cell Distribution Width 13.7 % (11.5-14.5)
[2019-02-20 01:40] LABS: ALT/SGPT 19 U/l (0-40); Albumin 2.3 gm/dL (3.2-5.2); Albumin/Globulin Ratio 0.7 (1.0-2.3); Alkaline Phosphatase 246 U/L (39-117); Blood Urea Nitrogen 12 mg/dl (8-23); C-Reactive Protein 15.5 mg/dl (0.0-0.8)
[2019-02-20] MEDS ORDERED: ONDANSETRON 4 MG/2 ML VIAL IV PRN ×2 (02:15→10:57)
[2019-02-20] MEDS ORDERED: NALOXONE HCL 0.4 MG/ML VIAL IV PRN ×2 (02:15→10:57)
[2019-02-20] MEDS ORDERED: HYDROcodone/APAP 5/325MG TABLET PO PRN (02:15)
[2019-02-20] MEDS ORDERED: LACTATED RINGERS 1,000 ML IV SCH (02:15)
[2019-02-20] MEDS ORDERED: ACETAMINOPHEN 325 MG TABLET PO PRN ×2 (02:15→10:57)
[2019-02-20] MEDS ORDERED: PANTOPRAZOLE 40 MG VIAL IV ONE (02:20)
[2019-02-20] MEDS: PIPERACILLIN SODIUM/TAZOBACTAM 3.375 GM in DEXTROSE 5% IN WATER 50 ML IV SCH ×5 (02:28→23:58)
[2019-02-20] MEDS ORDERED: VANCOMYCIN 1,000 MG in 0.9 % SODIUM CHLORIDE 250 ML IV SCH (02:30)
[2019-02-20] MEDS: methylPREDNISolone SOD SUCC 125 MG/2 ML VIAL IV SCH ×5 (03:52→23:58)
[2019-02-20] MEDS ORDERED: IPRATROPIUM/ALBUTEROL 3 ML AMPUL.NEB NEB SCH (07:00)
[2019-02-20] MEDS ORDERED: OMEPRAZOLE 20 MG CAPSULE PO SCH (07:30)
--- NOTE | 2019-02-20 08:02 | XRay Report ---
HISTORY: Fever, recent pneumonia, history of lung cancer, former smoker FINDINGS: There is severe emphysema and pulmonary fibrosis throughout both lungs. Superimposed upon this is a small peripheral infiltrate laterally in the right mid/lower thorax. There is also very small right-sided pleural effusion. These findings have developed since 02/11/19. The right central hilar mass seen on prior chest CT is obscured by consolidated overlying lung parenchyma. The heart size is normal. There is a lytic metastasis with pathologic fracture laterally in the right 10th rib. There is another fracture posterolaterally in the right sixth rib. IMPRESSION: Mild pneumonia in the right mid/lower thorax superimposed upon underlying severe pulmonary fibrosis Bone metastasis with fractured right side ribs Interpreted and Authenticated by: Gustavo Reddy 02/20/19
[2019-02-20] MEDS ORDERED: LOPERAMIDE 2 MG CAPSULE PO PRN ×2 (08:14→10:57)
[2019-02-20] MEDS ORDERED: IPRATROPIUM/ALBUTEROL 3 ML AMPUL.NEB NEB PRN ×2 (08:14→10:57)
[2019-02-20] MEDS ORDERED: BISACODYL 10 MG SUPP.RECT PR PRN ×2 (08:14→10:57)
[2019-02-20] MEDS ORDERED: MAGNESIUM HYDROXIDE 30 ML ORAL.SUSP PO PRN ×2 (08:14→10:57)
[2019-02-20] MEDS ORDERED: FLEETS ADULT ENEMA PR PRN ×2 (08:30→10:57)
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
[2019-02-20] MEDS ORDERED: METOPROLOL SUCCINATE 25 MG TAB.XL.24H PO SCH (09:00)
[2019-02-20] MEDS ORDERED: ENOXAPARIN 40 MG/0.4 ML SYRINGE SQ SCH (09:00)
[2019-02-20] MEDS ORDERED: PREGABALIN 150 MG CAPSULE PO SCH (09:00)
[2019-02-20] MEDS ORDERED: LACTOBACILLUS 1 CAPSULE PO SCH (09:00)
[2019-02-20] MEDS ORDERED: VANCOMYCIN PER PHARMACY IV SCH (11:30)
[2019-02-20] MEDS: LACTATED RINGERS 1,000 ML IV SCH ×2 (11:36→19:07)
[2019-02-20] MEDS: VANCOMYCIN 1,000 MG in 0.9 % SODIUM CHLORIDE 250 ML IV SCH (12:55)
[2019-02-20] MEDS: IPRATROPIUM/ALBUTEROL 3 ML AMPUL.NEB NEB SCH ×2 (15:46→18:50)
[2019-02-20] MEDS: HYDROcodone/APAP 5/325MG TABLET PO PRN ×2 (19:08→23:58)
[2019-02-20] MEDS: METOPROLOL SUCCINATE 25 MG TAB.XL.24H PO SCH (21:32)
[2019-02-20] MEDS: PREGABALIN 150 MG CAPSULE PO SCH (21:32)
[2019-02-20] MEDS: LACTOBACILLUS 1 CAPSULE PO SCH (21:32)
[2019-02-21] MEDS: VANCOMYCIN 1,000 MG in 0.9 % SODIUM CHLORIDE 250 ML IV SCH ×2 (01:25→14:08)
[2019-02-21] MEDS: IPRATROPIUM/ALBUTEROL 3 ML AMPUL.NEB NEB SCH ×4 (01:26→19:51)
[2019-02-21] MEDS: methylPREDNISolone SOD SUCC 125 MG/2 ML VIAL IV SCH ×3 (06:03→21:49)
[2019-02-21] MEDS: HYDROcodone/APAP 5/325MG TABLET PO PRN ×5 (06:04→23:55)
[2019-02-21] MEDS: PIPERACILLIN SODIUM/TAZOBACTAM 3.375 GM in DEXTROSE 5% IN WATER 50 ML IV SCH ×3 (06:04→17:46)
[2019-02-21] MEDS: OMEPRAZOLE 20 MG CAPSULE PO SCH (07:18)
[2019-02-21] MEDS: LACTATED RINGERS 1,000 ML IV SCH (07:19)
[2019-02-21 08:25] LABS: Mean Cell Volume 88.1 fL (80.0-100.0); Mean Corpuscular HGB Conc 32.8 g/dL (31.0-36.0); Platelet Count 499 K/mcL (140-440); RBC 3.61 M/mcL (4.50-5.90); Red Cell Distribution Width 14.5 % (11.5-14.5)
[2019-02-21 08:41] LABS: ALT/SGPT 21 U/l (0-40); Albumin 2.4 gm/dL (3.2-5.2); Albumin/Globulin Ratio 0.6 (1.0-2.3); Alkaline Phosphatase 236 U/L (39-117); Bilirubin,Direct < 0.2 mg/dL (0.0-0.3); Blood Urea Nitrogen 14 mg/dl (8-23); Gamma Glutamyl Transpeptidase 104 U/L (8-61); Uric Acid 2.1 mg/dL (2.5-8.0)
[2019-02-21 08:50] LABS: Band Neutrophils % 1 % (0-10); Lymphocytes % 4 % (15-49); Monocytes % (Manual) 2 % (1-12); Myelocytes % 1 % (0-0); Platelet Estimate INCREASED (NORMAL); RBC Morphology NORMAL (NORMAL); Segmented Neutrophils % 92 % (38-78)
--- NOTE | 2019-02-21 09:40 | Internal Med Progress Note ---
Medical - PN: Subj Patient information: Note initiated : 02/21/19 at 9:36 am Service Date, if different from initiated Date: [] Patient: Dawson Abdi 68 y/o M admitted on 02/20/19 for Fever x 1 Week. Chief Complaint: [] Interval history: Mr. Abdi is a 68 year old with a long history of smoking M was recently diagnosed with lung mass with associated adenopathy highly suspicious for malignancy and subsequently recent admission for pneumonia. Patient has been following with pulmonology Dr. Loredo. He underwent bronchoscopy and has been on oral antibiotics for Klebsiella culture from bronchial washings. He was due for further evaluation including PET scan and possible intervention bronchoscopy at [place]. Is currently residing at [facility]. Over the last 5-6 days patient has noted increasing short of breath along with yellow productive sputum. Initially with expectorating clearish sputum but noticed notices blood-tinged sputum since yesterday. He also complains of associated right lower chest pain during spells of coughing. Over the last 24 hours he has been experiencing shaking chills and fever as high as 104. He was subsequently referred to the ER Initial workup was consistent with postobstructive pneumonia/sepsis with a white count 11.6 and fever of 101.9. Patient was started on antibiotic coverage and hospitalist service was consulted. At the time of evaluation patient is alert and oriented. He endorses to pleuritic chest pain as above. Endorses to history as above. Denies bloody stool, chest palpitation, lightheadedness or dizziness. 02/21- white count 14,000. Currently on Zosyn. Clinically improving since admission. fever defervesced. [facility] a[facility] outpatient PET scan scheduled at [facility] on Monday. Patient will also need outpatient bronchoscopy at [place] as per Dr. Loredo. A referral was made by contract preparer to Dr. Júnior Urrutia at [place] for bronchoscopy. Repeat chest imaging in 24 hours. Would also attempt direct transfer to [facility] or [facility] for care coordination. - Constitutional Vitals: Vital Signs Temp Pulse Resp BP Pulse Ox 97.8 F 56 L 18 152/75 99 02/21/19 07:11 02/21/19 07:11 02/21/19 07:11 02/21/19 07:11 02/21/19 07:11 Period Temp Pulse Resp BP Sys/Dudley Pulse Ox Last 24 Hr 97.2 F-97.9 F 56-108 14-24 107-152/68-84 93-100 Intake and Output 02/20/19 02/21/19 02/21/19 21:59 05:59 13:59 Intake Total 560 1650 50 Output Total 325 Balance 560 1325 50 Weight 116 lb Intake & Output: Intake & Output 02/20/19 02/21/19 02/21/19 21:59 05:59 13:59 Intake Total 560 1650 50 Output Total 325 Balance 560 1325 50 Weight 116 lb Intake: IV 1350 50 Lactated Ringers 1,000 ml @ 100 1000 mls/hr IV .Q10H NAOMI Rx#: [id number] Zosyn 3.375 gm In Dextrose 5% 100 50 in Water 50 ml @ 100 mls/hr IV Q6H NAOMI Rx#:[id number] Vancomycin 1,000 mg In Sodium 250 Chloride 0.9% 250 ml @ 250 mls/ hr IV Q12H NAOMI Rx#:[id number] Oral 560 300 Output: Void Amount 325 Other: Meal Dinner Percent of Meal Consumed 95% Urine Appearance Clear Clear Clear Urine Color Bright Yellow Dark Yellow Bright Yellow Urine Odor Normal Stool Size Small Moderate Stool Color Brown Brown Stool Consistency Soft Normal for Patient # Voids 1 # Bowel Movements 1 1 General appearance: no acute distress Exam: Alert oriented Labored breathing No anxiety Nondistended abdomen Diminished breath sounds bases Medical - PN: Obj Da - Labs CBC & Chem 7: 02/21/19 07:54 02/21/19 07:54 Labs: Abnormal Lab Results 02/21/19 02/21/19 02/20/19 07:54 07:54 00:52 WBC 14.2 H RBC 3.61 L Hgb 10.4 L Hct 31.8 L Plt Count 499 H Gran % Lymph % (Auto) Gran # Lymph # (Auto) [place] # (Auto) Seg Neutrophils % 92 H Lymphocytes % 4 L Myelocytes % 1 H Platelet Estimate Increased A PT INR Creatinine 0.5 L 0.6 L Glucose 154 H 124 H Uric Acid 2.1 L Calcium 8.3 L GGT 104 H Alkaline Phosphatase 236 H 246 H C-Reactive Protein 15.5 H Total Protein 5.7 L Albumin 2.4 L 2.3 L Globulin 3.8 H Albumin/Globulin Ratio 0.6 L 0.7 L 02/20/19 02/20/19 00:52 00:52 WBC 11.6 H RBC 3.31 L Hgb 9.3 L Hct 28.3 L Plt Count Gran % 79.6 H Lymph % (Auto) 9.4 L Gran # 9.2 H Lymph # (Auto) 1.1 L [place] # (Auto) 1.1 H Seg Neutrophils % Lymphocytes % Myelocytes % Platelet Estimate PT 14.9 H INR 1.2 H Creatinine Glucose Uric Acid Calcium GGT Alkaline Phosphatase C-Reactive Protein Total Protein Albumin Globulin Albumin/Globulin Ratio Meds: Medications Acetaminophen (Tylenol) 650 mg PO Q6HP PRN PRN Reason: PAIN/FEVER > 101 Last Admin: 02/20/19 21:38 Dose: 650 mg Documented by: Hydrocodone Bitart/Acetaminophen ([place] 5/325mg) 1 tab PO Q4HP PRN PRN Reason: PAIN LEVEL 3-6 Last Admin: 02/21/19 06:04 Dose: 1 tab Documented by: Albuterol/Ipratropium (Duoneb) 3 ml NEB QIDP PRN PRN Reason: Bronchodilation Albuterol/Ipratropium (Duoneb) 3 ml NEB Q6HRT [facility] Last Admin: 02/21/19 07:53 Dose: Not Given Documented by: Bisacodyl (Dulcolax) 10 mg WI QDAY PRN PRN Reason: Constipation Enoxaparin Sodium (Lovenox) 40 mg SQ DAILY [facility] Lactated Ringer's (Lactated Ringers) 1,000 mls @ 100 mls/hr IV .Q10H [facility] Last Admin: 02/21/19 07:19 Dose: 100 mls/hr Documented by: Piperacillin Sod/Tazobactam (Sod 3.375 gm/ Dextrose) 50 mls @ 100 mls/hr IV Q6H [facility]; Protocol Last Infusion: 02/21/19 06:34 Dose: Infused Documented by: Vancomycin HCl 1,000 mg/ (Sodium Chloride) 250 mls @ 250 mls/hr IV Q12H [facility]; Protocol Last Infusion: 02/21/19 02:25 Dose: Infused Documented by: Lactobacillus Rhamnosus (Culturelle) 1 cap PO BID [facility] Last Admin: 02/20/19 21:32 Dose: 1 cap Documented by: Loperamide HCl (Imodium) 2 mg PO Q2-4HP PRN PRN Reason: Loose Stool Magnesium Hydroxide (Milk Of Magnesia) 30 ml PO QHS PRN PRN Reason: Constipation Methylprednisolone Sodium Succinate (Solu-Medrol) 62.5 mg IV Q6 [facility] Last Admin: 02/21/19 06:03 Dose: 62.5 mg Documented by: Metoprolol Succinate (Toprol Xl) 25 mg PO BID [facility] Last Admin: 02/20/19 21:32 Dose: 25 mg Documented by: Morphine Sulfate (Morphine) 2 mg IV Q1HP PRN PRN Reason: PAIN LEVEL > 6 Last Admin: 02/21/19 07:18 Dose: 2 mg Documented by: Naloxone HCl (Narcan) 0.1 mg IV Q2MIN PRN PRN Reason: Opiate Reversal Omeprazole (Prilosec) 20 mg PO QAMAC [facility] Last Admin: 02/21/19 07:18 Dose: 20 mg Documented by: Ondansetron HCl (Zofran) 4 mg IV Q4HP PRN PRN Reason: Nausea And Vomiting Spiriva Respimat (Inhaler) 2 dose INH DAILY [facility] Pregabalin (Lyrica) 150 mg PO BID [facility] Last Admin: 02/20/19 21:32 Dose: Not Given Documented by: Sodium Biphosphate/Sodium Phosphate (Fleets Adult) 1 dose [place] DAILYP PRN PRN Reason: Constipation Vancomycin HCl (Vancomycin Per Pharmacy) 1 order IV UD [facility] Medical - PN: A/P - Time Spent With Patient Total time spent is greater than 50% in coordination of care (as documented) at patient's floor/unit and/or counseling patient: 25 - 35 minutes (1) RLL pneumonia Status: Acute Assessment and plan: * Right middle and lower lobe pneumonia- recent diagnosis of lung mass. Possible postobstructive. Clinically improving on antibiotic coverage. * Severe sepsis with leukocytosis/fever. On antibiotic coverage. White count 14. Clinical improvement noted. * COPD exacerbation secondary to above-continue bronchodilators * Right lower lobe lung mass -will undergo PET scan as an [facility] on Monday after insurance authorization., status post bronchoscopy by pulmonology recently. Pulmonology referred patient for outpatient bronchoscopy at [place] by Dr. Aquino See * Right 10th rib fracture likely metastatic lytic lesion * Chronic right hip back pain-stable, possibly metastatic bone pain * protein calorie malnutrition-dietary consult * History of tobacco dependence-quit 6 weeks ago * History of hypertension continue metoprolol at home dose * Neuropathy on Lyrica * Full code * Prophylaxis heparin Plan * Continue antibiotic coverage * Pain management * Scheduled outpatient PET scan on Monday at [facility] * Patient will need to follow-up with Dr. Clau Urrutia contract preparer at [place] on discharge for outpatient bronchoscopy * Also attempt direct transfer to [place]. Await call back from [place] * Pre-existing medical condition management as above Current Visit: Yes Medical - PN: Qual - Stroke Symptom Onset Unknown: No - VTE Deep Vein Thrombosis/Pulmonary Embolism Present on Admission: No
[2019-02-21] MEDS: ENOXAPARIN 40 MG/0.4 ML SYRINGE SQ SCH (10:08)
[2019-02-21] MEDS: LACTOBACILLUS 1 CAPSULE PO SCH ×2 (10:09→20:58)
[2019-02-21] MEDS: METOPROLOL SUCCINATE 25 MG TAB.XL.24H PO SCH ×2 (10:11→20:58)
[2019-02-21] MEDS: PREGABALIN 150 MG CAPSULE PO SCH ×2 (10:11→20:59)
[2019-02-21] MEDS: VANCOMYCIN 1,500 MG in 0.9 % SODIUM CHLORIDE 500 ML IV SCH ×2 (13:30→23:10)
--- NOTE | 2019-02-21 15:22 | Internal Med Progress Note ---
Medical - PN: Subj Patient information: Note initiated : 02/21/19 at 3:20 pm Service Date, if different from initiated Date: [] Patient: Dawson Abdi 68 y/o M admitted on 02/20/19 for Fever x 1 Week. Chief Complaint: [] Interval history: Mr. Abdi is a 68 year old with a long history of smoking M was recently diagnosed with lung mass with associated adenopathy highly suspicious for malignancy and subsequently recent admission for pneumonia. Patient has been following with pulmonology Dr. Loredo. He underwent bronchoscopy and has been on oral antibiotics for Klebsiella culture from bronchial washings. He was due for further evaluation including PET scan and possible intervention bronchoscopy at [place]. Is currently residing at [facility]. Over the last 5-6 days patient has noted increasing short of breath along with yellow productive sputum. Initially with expectorating clearish sputum but noticed notices blood-tinged sputum since yesterday. He also complains of associated right lower chest pain during spells of coughing. Over the last 24 hours he has been experiencing shaking chills and fever as high as 104. He was subsequently referred to the ER Initial workup was consistent with postobstructive pneumonia/sepsis with a white count 11.6 and fever of 101.9. Patient was started on antibiotic coverage and hospitalist service was consulted. At the time of evaluation patient is alert and oriented. He endorses to pleuritic chest pain as above. Endorses to history as above. Denies bloody stool, chest palpitation, lightheadedness or dizziness. 02/21- white count 14,000. Currently on Zosyn. Clinically improving since admission. fever defervesced. [facility] PET scan scheduled at [place] on Monday. Patient will also need outpatient bronchoscopy at [place] as per Dr. Loredo. A referral was made by line haul driver to Dr. Júnior Urrutia at [place] for bronchoscopy. Repeat chest imaging in 24 hours. Would also attempt direct transfer to [facility] or [place] for care coordination. Discussed the case with Diana Urrutia, who felt the patient did not need to be transferred up there today. She felt that he can be treated for his postobs tructive pneumonia here, discharged and then followed up with her hopefully next week for bronchoscopy. If he shows no improvement and is still here on Monday then he can be transferred up on Monday, and to call her. If he is discharged and then returns to the ED then he would need to be shipped immediately up to [place] from the ED. - Constitutional Vitals: Vital Signs Temp Pulse Resp BP Pulse Ox 98.0 F 116 H 24 H 146/68 80 L 02/21/19 11:34 02/21/19 14:57 02/21/19 14:57 02/21/19 11:34 02/21/19 14:57 Period Temp Pulse Resp BP Sys/Dudley Pulse Ox Last 24 Hr 97.2 F-98.0 F 56-116 14-24 111-152/68-84 80-100 Intake and Output 02/21/19 02/21/19 02/21/19 05:59 13:59 21:59 Intake Total 1650 740 Output Total 325 150 Balance 1325 740 -150 Weight 52.617 kg Patient Weight 02/22/19 05:59 Weight 52.617 kg Intake & Output: Intake & Output 02/21/19 02/21/19 02/21/19 05:59 13:59 21:59 Intake Total 1650 740 Output Total 325 150 Balance 1325 740 -150 Weight 52.617 kg Intake: IV 1350 100 Lactated Ringers 1,000 ml @ 100 1000 mls/hr IV .Q10H [facility] Rx#: [id number] Zosyn 3.375 gm In Dextrose 5% 100 100 in Water 50 ml @ 100 mls/hr IV Q6H [facility] Rx#:[id number] Vancomycin 1,000 mg In Sodium 250 Chloride 0.9% 250 ml @ 250 mls/ hr IV Q12H [facility] Rx#:[id number] Oral 300 400 Tube Feeding 240 Output: Void Amount 325 150 Other: Meal Lunch Percent of Meal Consumed 100% Feeding Ability Independent Urine Appearance Clear Clear Clear Urine Color Dark Yellow Bright Yellow Bright Yellow Urine Odor Normal Normal Stool Size Moderate Stool Color Brown Stool Consistency Normal for Patient # Voids 1 # Bowel Movements 1 Exam: General: Alert, Awake, No acute Distress, cachectic Eyes/N/T: EOMI, Head/Neck: neck supple, CV: RRR, No murmurs, Pulm: Abd: soft, nontender, +BS x4 Ext: no clubbing/cyanosis/edema Neuro: Alert, no focal deficits, moves all extremities, Skin: warm/dry Medical - PN: Obj Da - Labs CBC & Chem 7: 02/21/19 07:54 02/21/19 07:54 Labs: Abnormal Lab Results 02/21/19 02/21/19 02/20/19 07:54 07:54 00:52 WBC 14.2 H RBC 3.61 L Hgb 10.4 L Hct 31.8 L Plt Count 499 H Gran % Lymph % (Auto) Gran # Lymph # (Auto) [place] # (Auto) Seg Neutrophils % 92 H Lymphocytes % 4 L Myelocytes % 1 H Platelet Estimate Increased A PT INR Creatinine 0.5 L 0.6 L Glucose 154 H 124 H Uric Acid 2.1 L Calcium 8.3 L GGT 104 H Alkaline Phosphatase 236 H 246 H C-Reactive Protein 15.5 H Total Protein 5.7 L Albumin 2.4 L 2.3 L Globulin 3.8 H Albumin/Globulin Ratio 0.6 L 0.7 L 02/20/19 02/20/19 00:52 00:52 WBC 11.6 H RBC 3.31 L Hgb 9.3 L Hct 28.3 L Plt Count Gran % 79.6 H Lymph % (Auto) 9.4 L Gran # 9.2 H Lymph # (Auto) 1.1 L [place] # (Auto) 1.1 H Seg Neutrophils % Lymphocytes % Myelocytes % Platelet Estimate PT 14.9 H INR 1.2 H Creatinine Glucose Uric Acid Calcium GGT Alkaline Phosphatase C-Reactive Protein Total Protein Albumin Globulin Albumin/Globulin Ratio Meds: Medications Acetaminophen (Tylenol) 650 mg PO Q6HP PRN PRN Reason: PAIN/FEVER > 101 Last Admin: 02/20/19 21:38 Dose: 650 mg Documented by: Hydrocodone Bitart/Acetaminophen (Rachel 5/325mg) 1 tab PO Q4HP PRN PRN Reason: PAIN LEVEL 3-6 Last Admin: 02/21/19 10:09 Dose: 1 tab Documented by: Albuterol/Ipratropium (Duoneb) 3 ml NEB QIDP PRN PRN Reason: Bronchodilation Albuterol/Ipratropium (Duoneb) 3 ml NEB Q6HRT [facility] Last Admin: 02/21/19 13:44 Dose: 3 ml Documented by: Bisacodyl (Dulcolax) 10 mg IN QDAY PRN PRN Reason: Constipation Diphenhydramine HCl (Benadryl) 50 mg PO HSP PRN PRN Reason: Insomnia Enoxaparin Sodium (Lovenox) 40 mg SQ DAILY [facility] Last Admin: 02/21/19 10:08 Dose: 40 mg Documented by: Lactated Ringer's (Lactated Ringers) 1,000 mls @ 100 mls/hr IV .Q10H [facility] Last Admin: 02/21/19 07:19 Dose: 100 mls/hr Documented by: Piperacillin Sod/Tazobactam (Sod 3.375 gm/ Dextrose) 50 mls @ 100 mls/hr IV Q6H [facility]; Protocol Last Infusion: 02/21/19 12:51 Dose: Infused Documented by: Vancomycin HCl 1,500 mg/ (Sodium Chloride) 500 mls @ 333.3 mls/hr IV Q12H [facility] Last Admin: 02/21/19 13:30 Dose: 333.3 mls/hr Documented by: Lactobacillus Rhamnosus (Culturelle) 1 cap PO BID [facility] Last Admin: 02/21/19 10:09 Dose: 1 cap Documented by: Loperamide HCl (Imodium) 2 mg PO Q2-4HP PRN PRN Reason: Loose Stool Magnesium Hydroxide (Milk Of Magnesia) 30 ml PO QHS PRN PRN Reason: Constipation Methylprednisolone Sodium Succinate (Solu-Medrol) 62.5 mg IV Q6 [facility] Last Admin: 02/21/19 12:21 Dose: 62.5 mg Documented by: Metoprolol Succinate (Toprol Xl) 25 mg PO BID [facility] Last Admin: 02/21/19 10:11 Dose: 25 mg Documented by: Morphine Sulfate (Morphine) 2 mg IV Q1HP PRN PRN Reason: PAIN LEVEL > 6 Last Admin: 02/21/19 14:44 Dose: 2 mg Documented by: Naloxone HCl (Narcan) 0.1 mg IV Q2MIN PRN PRN Reason: Opiate Reversal Omeprazole (Prilosec) 20 mg PO QAMAC [facility] Last Admin: 02/21/19 07:18 Dose: 20 mg Documented by: Ondansetron HCl (Zofran) 4 mg IV Q4HP PRN PRN Reason: Nausea And Vomiting Spiriva Respimat (Inhaler) 2 dose INH DAILY [facility] Last Admin: 04/25/19 10:10 Dose: Not Given Documented by: Pregabalin (Lyrica) 150 mg PO BID [facility] Last Admin: 02/21/19 10:11 Dose: Not Given Documented by: Sodium Biphosphate/Sodium Phosphate (Fleets Adult) 1 dose IN DAILYP PRN PRN Reason: Constipation Vancomycin HCl (Vancomycin Per Pharmacy) 1 order IV UD [facility] Medical - PN: A/P - Time Spent With Patient Total time spent is greater than 50% in coordination of care (as documented) at patient's floor/unit and/or counseling patient: - Narrative A/P Narrative: A: *RML/RLL PNA, postobstructive: Clinically improving *Severe sepsis: -Fever now defervesced, continued leukocytosis *AECOPD (2L NC @home), severe underlying emphysema: *Acute on chronic hypoxic respiratory failure: 2/2 above -on 4L NC with good sats *Lung mass RLL, likely malignant: unable to get CT-guided lung bx by [facility] given safety concerns -Dr. Loredo unable to gather tissue on bronchoscopy; patient will need to see Dr. Kenia Urrutia at [place] (she is aware) *Right 10th rib fracture likely metastatic lytic lesion: *chronic pain right hip/back: Possible metastatic lesion *Malnutrition, protein calorie:: *Tobacco abuse: Quit 6 weeks ago *HTN: On Toprol at home *GERD: *Neuropathy: P: -zosyn/vanco, pending SC/BC -Discussed the case with Kenia Urrutia, who felt the patient did not need to be transferred up there today. She felt that he can be treated for his postobstructive pneumonia here, discharged and then followed up with her hopefully next week for bronchoscopy. If he shows no improvement and is still here on Monday then he can be transferred up on Monday, and to call her on her cell @[phone]. If he is discharged and then returns to the ED then he would need to be shipped immediately up to [place] from the ED. -Steroids (wean), Nebs/RT -supplemental O2, wean as able -PET scan on monday at [facility] -Dietary consult -pain mgmnt -cont home BB -pt/ot -CM for SNF -ppx: lovenox/home ppi full code Medical - PN: Qual - Stroke Symptom Onset Unknown: No - VTE Deep Vein Thrombosis/Pulmonary Embolism Present on Admission: No
[2019-02-21] MEDS ORDERED: LORazepam 2 MG/ML VIAL IV PRN (20:40)
[2019-02-21] MEDS ORDERED: LORazepam 2 MG/ML VIAL ONE (20:47)
[2019-02-21] MEDS: diphenhydrAMINE 25 MG CAPSULE PO PRN (20:58)
[2019-02-22] MEDS: PIPERACILLIN SODIUM/TAZOBACTAM 3.375 GM in DEXTROSE 5% IN WATER 50 ML IV SCH ×4 (00:41→17:15)
[2019-02-22] MEDS: IPRATROPIUM/ALBUTEROL 3 ML AMPUL.NEB NEB SCH ×4 (00:41→19:13)
[2019-02-22] MEDS: HYDROcodone/APAP 5/325MG TABLET PO PRN ×4 (05:38→19:46)
[2019-02-22] MEDS: methylPREDNISolone SOD SUCC 125 MG/2 ML VIAL IV SCH ×2 (05:54→21:48)
[2019-02-22 06:03] LABS: Mean Cell Volume 88.4 fL (80.0-100.0); Mean Corpuscular HGB Conc 32.7 g/dL (31.0-36.0); Platelet Count 507 K/mcL (140-440); RBC 3.49 M/mcL (4.50-5.90); Red Cell Distribution Width 14.2 % (11.5-14.5)
[2019-02-22 06:28] LABS: ALT/SGPT 26 U/l (0-40); Albumin 2.7 gm/dL (3.2-5.2); Albumin/Globulin Ratio 0.8 (1.0-2.3); Alkaline Phosphatase 236 U/L (39-117); Bilirubin,Direct < 0.2 mg/dL (0.0-0.3); Blood Urea Nitrogen 14 mg/dl (8-23); Gamma Glutamyl Transpeptidase 123 U/L (8-61); Uric Acid 2.1 mg/dL (2.5-8.0)
--- NOTE | 2019-02-22 07:18 | Internal Med Progress Note ---
Medical - PN: Subj Patient information: Note initiated : 02/22/19 at 7:13 am Service Date, if different from initiated Date: [] Patient: Dawson Abdi 68 y/o M admitted on 02/20/19 for Fever x 1 Week. Chief Complaint: [] Interval history: Mr. Abdi is a 68 year old with a long history of smoking M was recently diagnosed with lung mass with associated adenopathy highly suspicious for malignancy and subsequently recent admission for pneumonia. Patient has been following with pulmonology Dr. Loredo. He underwent bronchoscopy and has been on oral antibiotics for Klebsiella culture from bronchial washings. He was due for further evaluation including PET scan and possible intervention bronchoscopy at [place]. Is currently residing at [facility]. Over the last 5-6 days patient has noted increasing short of breath along with yellow productive sputum. Initially with expectorating clearish sputum but noticed notices blood-tinged sputum since yesterday. He also complains of associated right lower chest pain during spells of coughing. Over the last 24 hours he has been experiencing shaking chills and fever as high as 104. He was subsequently referred to the ER Initial workup was consistent with postobstructive pneumonia/sepsis with a white count 11.6 and fever of 101.9. Patient was started on antibiotic coverage and hospitalist service was consulted. At the time of evaluation patient is alert and oriented. He endorses to pleuritic chest pain as above. Endorses to history as above. Denies bloody stool, chest palpitation, lightheadedness or dizziness. 02/21- white count 14,000. Currently on Zosyn. Clinically improving since admission. fever defervesced. [facility] a[facility] outpatient PET scan scheduled at [place] on Monday. Patient will also need outpatient bronchoscopy at [place] as per Dr. Loredo. A referral was made by meat and seafood manager to Dr. Júnior Urrutia at [place] for bronchoscopy. Repeat chest imaging in 24 hours. Would also attempt direct transfer to [facility] or [place] for care coordination. Discussed the case with Diana Urrutia, who felt the patient did not need to be transferred up there today. She felt that he can be treated for his postobs tructive pneumonia here, discharged and then followed up with her hopefully next week for bronchoscopy. If he shows no improvement and is still here on Monday then he can be transferred up on Monday, and to call her. If he is discharged and then returns to the ED then he would need to be shipped immediately up to [facility] from the ED. 02/22 Left okay. No overnight events. No new complaints. Denies cough this morning. States shortness of breath is about the same. Review of Systems: denies headache/fever/chills/nausea/vomiting/chest or abdominal pain/diarrhea. Otherwise see above. - Constitutional Vitals: Vital Signs Temp Pulse Resp BP Pulse Ox 98.2 F 70 20 144/80 96 02/22/19 03:34 02/22/19 03:34 02/22/19 03:34 02/22/19 03:34 02/22/19 03:34 Period Temp Pulse Resp BP Sys/Dudley Pulse Ox Last 24 Hr 98.0 F-98.8 F 56-116 18-24 110-146/63-84 80-98 Intake and Output 02/21/19 02/22/19 02/22/19 21:59 05:59 13:59 Intake Total 550 800 50 Output Total 450 275 Balance 100 525 50 Weight 53.524 kg Intake & Output: Intake & Output 02/21/19 02/22/19 02/22/19 21:59 05:59 13:59 Intake Total 550 800 50 Output Total 450 275 Balance 100 525 50 Weight 53.524 kg Intake: IV 550 550 50 Zosyn 3.375 gm In Dextrose 5% 50 50 50 in Water 50 ml @ 100 mls/hr IV Q6H [facility] Rx#:[id number] Vancomycin 1,500 mg In Sodium 500 500 Chloride 0.9% 500 ml @ 333.3 mls/hr IV Q12H [facility] Rx#: [id number] Oral 250 Output: Void Amount 450 275 Other: Urine Appearance Clear Clear Urine Color Bright Yellow Dark Yellow Urine Odor Normal Exam: General: Alert, Awake, No acute Distress, cachectic Eyes/N/T: EOMI, Head/Neck: neck supple, CV: RRR, No murmurs, Pulm: Diminished b/l, occasional wheez Abd: soft, nontender, +BS x4 Ext: no clubbing/cyanosis/edema Neuro: Alert, no focal deficits, moves all extremities, Skin: warm/dry Medical - PN: Obj Da - Labs CBC & Chem 7: 02/22/19 04:32 02/22/19 04:32 Labs: Abnormal Lab Results 02/22/19 02/22/19 02/21/19 04:32 04:32 07:54 WBC 16.7 H RBC 3.49 L Hgb 10.1 L Hct 30.8 L Plt Count 507 H Gran % Lymph % (Auto) Gran # Lymph # (Auto) [place] # (Auto) Seg Neutrophils % Lymphocytes % Myelocytes % Platelet Estimate PT INR Creatinine 0.5 L 0.5 L Glucose 135 H 154 H Uric Acid 2.1 L 2.1 L Calcium GGT 123 H 104 H Alkaline Phosphatase 236 H 236 H C-Reactive Protein Total Protein Albumin 2.7 L 2.4 L Globulin 3.8 H Albumin/Globulin Ratio 0.8 L 0.6 L 02/21/19 02/20/19 02/20/19 07:54 00:52 00:52 WBC 14.2 H RBC 3.61 L Hgb 10.4 L Hct 31.8 L Plt Count 499 H Gran % Lymph % (Auto) Gran # Lymph # (Auto) [place]ett # (Auto) Seg Neutrophils % 92 H Lymphocytes % 4 L Myelocytes % 1 H Platelet Estimate Increased A PT 14.9 H INR 1.2 H Creatinine 0.6 L Glucose 124 H Uric Acid Calcium 8.3 L GGT Alkaline Phosphatase 246 H C-Reactive Protein 15.5 H Total Protein 5.7 L Albumin 2.3 L Globulin Albumin/Globulin Ratio 0.7 L 02/20/19 00:52 WBC 11.6 H RBC 3.31 L Hgb 9.3 L Hct 28.3 L Plt Count Gran % 79.6 H Lymph % (Auto) 9.4 L Gran # 9.2 H Lymph # (Auto) 1.1 L [place] # (Auto) 1.1 H Seg Neutrophils % Lymphocytes % Myelocytes % Platelet Estimate PT INR Creatinine Glucose Uric Acid Calcium GGT Alkaline Phosphatase C-Reactive Protein Total Protein Albumin Globulin Albumin/Globulin Ratio Meds: Medications Acetaminophen (Tylenol) 650 mg PO Q6HP PRN PRN Reason: PAIN/FEVER > 101 Last Admin: 02/20/19 21:38 Dose: 650 mg Documented by: Hydrocodone Bitart/Acetaminophen ([place] 5/325mg) 1 tab PO Q4HP PRN PRN Reason: PAIN LEVEL 3-6 Last Admin: 02/22/19 05:38 Dose: 1 tab Documented by: Albuterol/Ipratropium (Duoneb) 3 ml NEB QIDP PRN PRN Reason: Bronchodilation Albuterol/Ipratropium (Duoneb) 3 ml NEB Q6HRT [facility] Last Admin: 02/22/19 00:41 Dose: 3 ml Documented by: Bisacodyl (Dulcolax) 10 mg DE QDAY PRN PRN Reason: Constipation Diphenhydramine HCl (Benadryl) 50 mg PO HSP PRN PRN Reason: Insomnia Last Admin: 02/21/19 20:58 Dose: 50 mg Documented by: Enoxaparin Sodium (Lovenox) 40 mg SQ DAILY [facility] Last Admin: 02/21/19 10:08 Dose: 40 mg Documented by: Piperacillin Sod/Tazobactam (Sod 3.375 gm/ Dextrose) 50 mls @ 100 mls/hr IV Q6H [facility]; Protocol Last Infusion: 02/22/19 06:10 Dose: Infused Documented by: Vancomycin HCl 1,500 mg/ (Sodium Chloride) 500 mls @ 333.3 mls/hr IV Q12H [facility] Last Infusion: 02/22/19 00:42 Dose: Infused Documented by: Lactobacillus Rhamnosus (Culturelle) 1 cap PO BID [facility] Last Admin: 02/21/19 20:58 Dose: 1 cap Documented by: Loperamide HCl (Imodium) 2 mg PO Q2-4HP PRN PRN Reason: Loose Stool Lorazepam (Ativan) 0.5 - 1 mg IV Q6HP PRN PRN Reason: ANXIETY/SEDATION Last Admin: 02/21/19 20:58 Dose: 1 mg Documented by: Magnesium Hydroxide (Milk Of Magnesia) 30 ml PO QHS PRN PRN Reason: Constipation Methylprednisolone Sodium Succinate (Solu-Medrol) 62.5 mg IV Q8 [facility] Last Admin: 02/22/19 05:54 Dose: 62.5 mg Documented by: Metoprolol Succinate (Toprol Xl) 25 mg PO BID [facility] Last Admin: 02/21/19 20:58 Dose: 25 mg Documented by: Morphine Sulfate (Morphine) 2 mg IV Q1HP PRN PRN Reason: PAIN LEVEL > 6 Last Admin: 02/22/19 05:38 Dose: 2 mg Documented by: Naloxone HCl (Narcan) 0.1 mg IV Q2MIN PRN PRN Reason: Opiate Reversal Omeprazole (Prilosec) 20 mg PO QAMAC [facility] Last Admin: 02/21/19 07:18 Dose: 20 mg Documented by: Ondansetron HCl (Zofran) 4 mg IV Q4HP PRN PRN Reason: Nausea And Vomiting Spiriva Respimat (Inhaler) 2 dose INH DAILY [facility] Last Admin: 02/21/19 10:10 Dose: Not Given Documented by: Pregabalin (Lyrica) 150 mg PO BID [facility] Last Admin: 02/21/19 20:59 Dose: Not Given Documented by: Sodium Biphosphate/Sodium Phosphate (Fleets Adult) 1 dose DE DAILYP PRN PRN Reason: Constipation Vancomycin HCl (Vancomycin Per Pharmacy) 1 order IV UD [facility] Medical - PN: A/P - Time Spent With Patient Total time spent is greater than 50% in coordination of care (as documented) at patient's floor/unit and/or counseling patient: - Narrative A/P Narrative: A: *RML/RLL PNA, postobstructive: Clinically improving *Severe sepsis: improved -Fever now defervesced, continued leukocytosis but steroid component and no bandemia *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 Loredo unable to gather tissue on bronchoscopy; patient will need to see Dr. Kenia Urrutia at [facility] (she is aware) *Right 10th rib fracture likely metastatic lytic lesion: *chronic pain right hip/back: Possible metastatic lesion *Malnutrition, protein calorie:: *Tobacco abuse: Quit 6 weeks ago *HTN: On Toprol at home *GERD: *Neuropathy: P: -zosyn/vanco(d/c), pending SC/BC -Discussed the case with Kenia Urrutia, who felt the patient did not need to be transferred up there today. She felt that he can be treated for his postobstructive pneumonia here, discharged and then followed up with her [facility] next week for bronchoscopy. If he shows no improvement and is still here on Monday then he can be transferred up on Monday, and to call her on her cell @[phone]. If he is discharged and then returns to the ED then he would need to be shipped immediately up to [facility] from the ED. -Steroids (wean), Nebs/RT -supplemental O2, wean as able -[facility] scan on monday at [facility] -Dietary consult -pain mgmnt -cont home BB -pt/ot -CM for SNF -ppx: lovenox/home ppi full code Medical - PN: Qual - Stroke Symptom Onset Unknown: No - VTE Deep Vein Thrombosis/Pulmonary Embolism Present on Admission: No
[2019-02-22] MEDS: OMEPRAZOLE 20 MG CAPSULE PO SCH (07:32)
[2019-02-22 07:48] LABS: Band Neutrophils % 1 % (0-10); Lymphocytes % 1 % (15-49); Monocytes % (Manual) 1 % (1-12); Platelet Estimate INCREASED (NORMAL); RBC Morphology ABNORM (NORMAL); Segmented Neutrophils % 97 % (38-78)
[2019-02-22] MEDS: METOPROLOL SUCCINATE 25 MG TAB.XL.24H PO SCH ×2 (08:21→21:48)
[2019-02-22] MEDS: LACTOBACILLUS 1 CAPSULE PO SCH ×2 (08:21→21:48)
[2019-02-22] MEDS: ENOXAPARIN 40 MG/0.4 ML SYRINGE SQ SCH (08:21)
[2019-02-22] MEDS: PREGABALIN 150 MG CAPSULE PO SCH ×2 (08:22→21:54)
--- NOTE | 2019-02-22 11:29 | Discharge Summary ---
Medical - DS: Prov Patient information: Note initiated : 02/22/19 at 11:23 am Service Date, if different from initiated Date: [] Patient: Dawson Abdi 68 y/o M admitted on 02/20/19 for Fever x 1 Week. Chief Complaint: [] Date of admission: 02/20/19 03:00 Discharge date: 02/23/19 Primary care physician: Katina Reyes Consults: 02/20/19 Consult to Physician [CONS] Stat Comment: Consulting Provider: Jian Garcia Reason For Exam: Physician to Consult Medical - DS: Meds - Discharge Medications Prescriptions: Lactobacillus [Culturelle] 1 cap PO BID #40 cap Levofloxacin [Levaquin] 750 mg PO DAILY #4 tab predniSONE [Prednisone] 30 mg PO DAILY #1 tab Active and Home Medications: Home Medications Omeprazole [Prilosec] 1 tab PO QDAY 01/31/19 [History Confirmed 02/20/19 Last Taken 02/19/19 17:00] Lactobacillus [Culturelle] 1 cap PO BID #40 cap 02/03/19 [Rx Confirmed 02/20/19 Last Taken 02/19/19 15:00] oxyCODONE HCL [Oxycodone HCl] See Rx Instructions PO ONCE #20 tab 02/04/19 [Rx Confirmed 02/20/19 Last Taken 02/19/19 21:00] Spiriva Respimat 2 puff INHALATION DAILY 02/06/19 [History Confirmed 02/20/19 Last Taken 02/19/19 09:00] ipratropium-albuterol 0.5 mg-3 mg(2.5 mg base)/3 mL nebulization soln 3 ml INHALATION QID PRN 02/06/19 [History Confirmed 02/20/19 Last Taken 02/17/19 20:11] Pregabalin [Lyrica] 150 mg PO BID 02/11/19 [History Confirmed 02/20/19 Last Taken 02/19/19 15:00] cefuroxime axetil 500 mg tablet 500 mg PO Q12H 10 Days #20 tab 02/13/19 [Rx Confirmed 02/20/19 Last Taken 02/19/19 17:00] acetaminophen 325 mg tablet 650 mg PO QID PRN 02/14/19 [History Confirmed 02/20/19 Last Taken 02/18/19 11:00] albuterol sulfate HFA 90 mcg/actuation aerosol inhaler 2 puff INHALATION QID PRN 02/14/19 [History Confirmed 02/20/19 Last Taken Unknown] bisacodyl 10 mg rectal suppository 10 mg IL QDAY PRN 02/14/19 [History Confirmed 02/20/19 Last Taken Unknown] loperamide 2 mg capsule 2 mg PO Q2-4H PRN 02/14/19 [History Confirmed 02/20/19 Last Taken Unknown] magnesium hydroxide 400 mg/5 mL oral suspension 30 ml PO QHS PRN ml 02/14/19 [History Confirmed 02/20/19 Last Taken Unknown] metoprolol succinate ER 25 mg capsule sprinkle, ext. release 24 hr 25 mg PO BID each 02/14/19 [History Confirmed 02/20/19 Last Taken 02/19/19 16:00] sodium phosphates 19 gram-7 gram/118 mL enema 118 ml IL ONCE PRN 02/14/19 [History Confirmed 02/20/19 Last Taken Unknown] Home Medications Omeprazole [Prilosec] 1 tab PO QDAY 01/31/19 [History Confirmed 02/20/19 Last Taken 02/19/19 17:00] Lactobacillus [Culturelle] 1 cap PO BID #40 cap 02/03/19 [Rx Confirmed 02/20/19 Last Taken 02/19/19 15:00] oxyCODONE HCL [Oxycodone HCl] See Rx Instructions PO ONCE #20 tab 02/04/19 [Rx Confirmed 02/20/19 Last Taken 02/19/19 21:00] Spiriva Respimat 2 puff INHALATION DAILY 02/06/19 [History Confirmed 02/20/19 Last Taken 02/19/19 09:00] ipratropium-albuterol 0.5 mg-3 mg(2.5 mg base)/3 mL nebulization soln 3 ml INHAL ATION QID PRN 02/06/19 [History Confirmed 02/20/19 Last Taken 02/17/19 20:11] Pregabalin [Lyrica] 150 mg PO BID 02/11/19 [History Confirmed 02/20/19 Last Taken 02/19/19 15:00] acetaminophen 325 mg tablet 650 mg PO QID PRN 02/14/19 [History Confirmed 02/20/19 Last Taken 02/18/19 11:00] albuterol sulfate HFA 90 mcg/actuation aerosol inhaler 2 puff INHALATION QID PRN 02/14/19 [History Confirmed 02/20/19 Last Taken Unknown] bisacodyl 10 mg rectal suppository 10 mg IL QDAY PRN 02/14/19 [History Confirmed 02/20/19 Last Taken Unknown] loperamide 2 mg capsule 2 mg PO Q2-4H PRN 02/14/19 [History Confirmed 02/20/19 Last Taken Unknown] magnesium hydroxide 400 mg/5 mL oral suspension 30 ml PO QHS PRN ml 02/14/19 [History Confirmed 02/20/19 Last Taken Unknown] metoprolol succinate ER 25 mg capsule sprinkle, ext. release 24 hr 25 mg PO BID each 02/14/19 [History Confirmed 02/20/19 Last Taken 02/19/19 16:00] sodium phosphates 19 gram-7 gram/118 mL enema 118 ml IL ONCE PRN 02/14/19 [History Confirmed 02/20/19 Last Taken Unknown] Lactobacillus [Culturelle] 1 cap PO BID #40 cap 02/22/19 [Rx Last Taken Unknown] Levofloxacin [Levaquin] 750 mg PO DAILY #4 tab 02/22/19 [Rx Last Taken Unknown] predniSONE [Prednisone] 30 mg PO DAILY #1 tab 02/22/19 [Rx Last Taken Unknown] Medical - DS: Hosp Hospital course: Mr. Abdi is a 68 year old M Mr. Abdi is a 68 year old with a long history of smoking M was recently diagnosed with lung mass with associated adenopathy highly suspicious for malignancy and subsequently recent admission for pneumonia. Patient has been following with pulmonology Dr. Loredo. He underwent bronchoscopy and has been on oral antibiotics for Klebsiella culture from bronchial washings. He was due for further evaluation including PET scan and possible intervention bronchoscopy at [facility]. Is currently residing at [facility]. Over the last 5-6 days patient has noted increasing short of breath along with yellow productive sputum. Initially with expectorating clearish sputum but noticed notices blood-tinged sputum since yesterday. He also complains of associated right lower chest pain during spells of coughing. Over the last 24 hours he has been experiencing shaking chills and fever as high as 104. He was subsequently referred to the ER Initial workup was consistent with postobstructive pneumonia/sepsis with a white count 11.6 and fever of 101.9. Patient was started on antibiotic coverage and hospitalist service was consulted. At the time of evaluation patient is alert and oriented. He endorses to pleuritic chest pain as above. Endorses to history as above. Denies bloody stool, chest palpitation, lightheadedness or dizziness. 02/21- white count 14,000. Currently on Zosyn. Clinically improving since admission. fever defervesced. [facility] PET scan scheduled at [facility] on Monday. Patient will also need outpatient bronchoscopy at [facility] as per Dr. Loredo. A referral was made by gamma ray operator to Dr. Júnior Urrutia at [facility] for bronchoscopy. Repeat chest imaging in 24 hours. Would also attempt direct transfer to [facility] or [facility] for care coordination. Discussed the case with Diana Urrutia, who felt the patient did not need to be transferred up there today. She felt that he can be treated for his postobstructive pneumonia here, discharged and then followed up with her hopefully next week for bronchoscopy. If he shows no improvement and is still here on Monday then he can be transferred up on Monday, and to call her. If he is discharged and then returns to the ED then he would need to be shipped immediately up to [place] from the ED. 02/22 Left okay. No overnight events. No new complaints. Denies cough this morning. States shortness of breath is about the same. 02/23 No overnight events. Patient stable for discharge. However he is quite tenuous in his new state of health and is very high risk for readmission. Patient is to have a PET scan at [facility] on Monday. Has an an appointment with gamma ray operator [place] Dr. Kenia Urrutia on March 06. If patient decompensates between this discharge and prior to seeing Dr. Urrutia and he needs to be transferred straight to [place] from the ED where she is available. Discharge diagnosis: Postobstructive pneumonia lung mass likely malignant COPD Secondary discharge diagnosis: Acute on chronic hypoxic respiratory failure rib fracture likely metastatic lytic lesion malnutrition tobacco abuse hypertension GERD neuropathy - Time Spent with Patient Total time spent providing and/or coordinating discharge services: Greater than 30 minutes Medical - DS: Exam - Constitutional Vitals: Vital Signs Temp Pulse Pulse Resp BP Pulse Ox 02/22/19 09:33 62 24 H 96 02/22/19 08:00 72 24 H 96 02/22/19 07:53 60 18 92 02/22/19 07:49 98.5 F 28 H 138/75 96 02/22/19 07:38 96 02/22/19 07:37 22 89 L 02/22/19 07:36 78 L 02/22/19 03:34 98.2 F 70 20 144/80 96 02/22/19 00:00 98.8 F 102 H 24 H 110/63 91 02/21/19 20:00 22 95 02/21/19 19:51 77 20 02/21/19 19:34 98.1 F 81 22 133/79 95 02/21/19 15:38 98.1 F 66 22 140/84 98 02/21/19 14:57 116 H 24 H 80 L 02/21/19 13:49 68 24 H 98 02/21/19 13:44 77 22 02/21/19 12:29 22 94 02/21/19 11:34 98.0 F 77 22 146/68 97 Intake and Output 02/21/19 02/22/19 02/22/19 21:59 05:59 13:59 Intake Total 550 800 810 Output Total 450 275 125 Balance 100 525 685 Intake: IV 550 550 50 Zosyn 3.375 gm In Dextrose 5% 50 50 50 in Water 50 ml @ 100 mls/hr IV Q6H [facility] Rx#:[id number] Vancomycin 1,500 mg In Sodium 500 500 Chloride 0.9% 500 ml @ 333.3 mls/hr IV Q12H [facility] Rx#: [id number] Oral 250 760 Output: Void Amount 450 275 125 Other: Urine Appearance Clear Clear Clear Urine Color Bright Yellow Dark Yellow Dark Yellow Urine Odor Normal Normal Weight 53.524 kg Medical - DS: Data Labs on day of discharge: Labs from last 24 hours 02/22/19 02/22/19 02/21/19 04:32 04:32 12:09 WBC 16.7 H RBC 3.49 L Hgb 10.1 L Hct 30.8 L MCV 88.4 MCH 28.9 MCHC 32.7 RDW 14.2 Plt Count 507 H MPV 7.7 Total Counted 100 Seg Neutrophils % 97 H Band Neutrophils % 1 Lymphocytes % 1 L Monocytes % (Manual) 1 Platelet Estimate Increased A RBC Morphology Abnorm A Polychromasia 1+ A Sodium 144 Potassium 4.2 Chloride 103 Carbon Dioxide 28 Anion Gap 13.0 BUN 14 Creatinine 0.5 L GFR Calculation 113 Glucose 135 H Uric Acid 2.1 L Calcium 9.2 Phosphorus 3.4 Magnesium 1.9 Total Bilirubin 0.2 Direct Bilirubin < 0.2 GGT 123 H AST 27 ALT 26 Alkaline Phosphatase 236 H Lactate Dehydrogenase 172 Total Protein 6.2 Albumin 2.7 L Globulin 3.5 Albumin/Globulin Ratio 0.8 L Triglycerides 119 Vancomycin Trough 9.3 Preliminary micro results at discharge 02/21/19 14:27 Sputum Culture - Preliminary Sputum - Expectorated 02/20/19 00:52 Blood Culture - Preliminary Blood 02/20/19 00:57 Blood Culture - Preliminary Blood Medical - DS: A/P - Patient/Caregiver Discharge Instructions Activity: as per physical therapy Diet: Regular Diet Additional Instructions: Carolyn at [facility] will scheduled your PET scan to be done at [facility]. Prescriptions: Lactobacillus [Culturelle] 1 cap PO BID #40 cap Levofloxacin [Levaquin] 750 mg PO DAILY #4 tab predniSONE [Prednisone] 30 mg PO DAILY #1 tab - Follow up Plan Follow up with: Provider,Other [Physician] - 03/06/19 9:45 am (Dr. Aquino See [address], [place] [address] ) Katina Reyes ARNP [Primary Care Provider] - Disposition: Xfer SNF Prognosis: Serious Rehab Potential: Fair I certify that the patient requires SNF services: Yes Overall status at discharge: patient is progressing back to baseline Medical - DS: Qual - VTE Deep Vein Thrombosis/Pulmonary Embolism Present on Admission: No
[2019-02-22] MEDS ORDERED: methylPREDNISolone SOD SUCC 125 MG/2 ML VIAL IV SCH (14:00)
[2019-02-22] MEDS: diphenhydrAMINE 25 MG CAPSULE PO PRN (21:48)
[2019-02-23] MEDS: PIPERACILLIN SODIUM/TAZOBACTAM 3.375 GM in DEXTROSE 5% IN WATER 50 ML IV SCH ×2 (00:39→05:49)
[2019-02-23] MEDS: IPRATROPIUM/ALBUTEROL 3 ML AMPUL.NEB NEB SCH ×2 (00:39→08:10)
[2019-02-23] MEDS: HYDROcodone/APAP 5/325MG TABLET PO PRN (04:31)
[2019-02-23 04:37] LABS: Mean Cell Volume 87.5 fL (80.0-100.0); Mean Corpuscular HGB Conc 33.4 g/dL (31.0-36.0); Platelet Count 546 K/mcL (140-440); RBC 3.44 M/mcL (4.50-5.90); Red Cell Distribution Width 14.3 % (11.5-14.5)
[2019-02-23 04:54] LABS: ALT/SGPT 48 U/l (0-40); Albumin 2.6 gm/dL (3.2-5.2); Albumin/Globulin Ratio 0.8 (1.0-2.3); Alkaline Phosphatase 224 U/L (39-117); Bilirubin,Direct < 0.2 mg/dL (0.0-0.3); Blood Urea Nitrogen 14 mg/dl (8-23); Gamma Glutamyl Transpeptidase 156 U/L (8-61); Uric Acid 2.2 mg/dL (2.5-8.0)
[2019-02-23 06:13] LABS: Band Neutrophils % 4 % (0-10); Lymphocytes % 1 % (15-49); Monocytes % (Manual) 6 % (1-12); Platelet Estimate INCREASED (NORMAL); RBC Morphology NORMAL (NORMAL); Segmented Neutrophils % 89 % (38-78)
[2019-02-23] MEDS: OMEPRAZOLE 20 MG CAPSULE PO SCH (07:03)
[2019-02-23] MEDS ORDERED: oxyCODONE HCL 5 MG TABLET PO PRN (08:37)
[2019-02-23] MEDS: ENOXAPARIN 40 MG/0.4 ML SYRINGE SQ SCH (08:42)
[2019-02-23] MEDS: methylPREDNISolone SOD SUCC 125 MG/2 ML VIAL IV SCH (08:42)
[2019-02-23] MEDS: METOPROLOL SUCCINATE 25 MG TAB.XL.24H PO SCH (08:43)
[2019-02-23] MEDS: LACTOBACILLUS 1 CAPSULE PO SCH (08:43)
[2019-02-23] MEDS: PREGABALIN 150 MG CAPSULE PO SCH (08:43)
== END 2019-02-23 09:25 | DRG 871 ==
LOC: ED 23:08 → MEDSUR 02-20 03:00
PROVIDERS: ADMIT Internal Medicine; ATTEND Internal Medicine